=== PATIENT | female | born 1995 | race African-American/Black ===

== ENCOUNTER 2020-08-06 10:35 | Outpatient (REF) | payer OTHER, SELFPAY ==
--- NOTE | 2020-08-06 10:42 | XR_ITS ---
EXAMINATION: XR CHEST CLINICAL INFORMATION: Cough COMPARISON: Previous chest x-ray most recent June 2020 TECHNIQUE: 2 views of the chest were obtained. FINDINGS: No significant abnormality is noted involving the heart, lungs, mediastinum, bony thorax or soft tissues. XR/XR chest 2V IMPRESSION: Unremarkable examination.
== END 2020-08-06 10:36 | disposition home or self-care (01) ==
LOC: HO.HMGCX 10:35
PROVIDERS: PCP Internal Medicine; Visit Provider Internal Medicine
DX: R05 Cough (principal)
CPT/HCPCS: 71046

== ENCOUNTER → 2020-10-16 15:11 | Outpatient (BNVA) | payer OTHER, SELFPAY | PROVIDERS: PCP Internal Medicine; Visit Provider Advanced Practice Midwife | DX: Z76.89 Persons encountering health services in other specified circumstances (principal) ==

== ENCOUNTER 2021-01-24 15:41 | Outpatient (REF) | payer OTHER, SELFPAY ==
--- NOTE | ~2021-01-24 | US_ITS ---
EXAMINATION: US THYROID CLINICAL INFORMATION: Nontoxic goiter, unspecified. COMPARISON: None TECHNIQUE: Linear transducer grayscale and color Doppler examination with attention to the region of the thyroid. FINDINGS: SIZE: Measurements of the thyroid lobes and nodules are given in sagittal, anteroposterior and transverse dimensions respectively. Right Thyroid Lobe: 5.7 x 2.8 x 2.8 cm, volume 23.4 mL. Parenchyma: The gland echotexture is homogeneous. Thyroid vascularity is normal. Left Thyroid Lobe: 5.1 x 1.8 x 1.5 cm, volume 7.2 mL. Parenchyma: The gland echotexture is homogeneous. Thyroid vascularity is normal. Isthmus: 0.3 cm in maximum AP dimension. Estimated total number of nodules greater than or equal to 1 cm: 1. [employer] Architect nodules are described as follows: 1. Location: Right mid. Size: 4.4 x 2.6 x 2.7 cm, volume 16.8 mL. Nodule characteristics: Composition: Solid (2). Echogenicity: Isoechoic (1). Shape: Not taller than wide (0). Margins: Smooth (0). Echogenic Foci: None (0). ACR TI-RADS total points: 3 ACR TI-RADS category: 3 NODES: No lymphadenopathy is seen in the tissue surrounding the thyroid gland. US/US thyroid IMPRESSION: Enlarged right lobe. Large solitary right thyroid nodule. Fine-needle aspiration and continued ultrasound follow-up as described below recommended. ACR TI-RADS RECOMMENDATION REFERENCE: Ultrasound-guided fine-needle aspiration, followup ultrasound, no further follow up. * TR1 (0 point) and TR 2 (2 points): No FNA or follow up * TR3 (3 points): FNA if more than or equal to 2.5 cm in maximum dimension, followup ultrasound in 1, 3 and 5 years if 1.5 to 2.4 cm in maximum dimension. * TR4 (4-6 points): FNA if more than or equal to 1.5 cm in maximum dimension, followup ultrasound in 1, 2, 3 and 5 years if 1 to 1.4 cm in maximum dimension. * TR5 (more than or equal to 7 points): FNA if more than or equal to 1 cm in maximum dimension, followup ultrasound every year for 5 years if 0.5 to 0.9 cm in maximum dimension. * TR3, TR4 or TR5 nodules that are below the size threshold for follow up receive no follow up.
== END 2021-01-24 15:42 | disposition home or self-care (01) ==
LOC: HO.US 15:41
PROVIDERS: PCP Internal Medicine; Visit Provider Internal Medicine
DX: E04.9 Nontoxic goiter, unspecified (principal)
CPT/HCPCS: 76536

== ENCOUNTER 2021-03-19 09:27 | Outpatient (REF) | payer OTHER, SELFPAY ==
[2021-03-19 14:00] LABS: CT PCR NOT DETECTED (Not Detect.); NG PCR NOT DETECTED (Not Detect.)
== END 2021-03-19 09:28 | disposition home or self-care (01) ==
LOC: HO.LAB 09:27
PROVIDERS: PCP Internal Medicine; Visit Provider Advanced Practice Midwife
DX: Z01.419 Encounter for gynecological examination (general) (routine) without abnormal findings (principal); Z11.3 Encounter for screening for infections with a predominantly sexual mode of transmission; Z20.2 Contact with and (suspected) exposure to infections with a predominantly sexual mode of transmission
CPT/HCPCS: 87491; 87591

== ENCOUNTER → 2021-03-25 10:39 | Outpatient (BNVA) | payer OTHER, SELFPAY | PROVIDERS: PCP Internal Medicine; Visit Provider Internal Medicine Endocrinology, Diabetes & Metabolism ==

== ENCOUNTER 2021-03-25 11:30 | Outpatient (REF) | payer OTHER, SELFPAY ==
[2021-03-25 14:40] LABS: Free T4 (Free Thyroxine) 0.89 ng/dL (0.71-1.85); Thyroid Stimulating Hormone 0.49 uIU/mL (0.32-4.0)
[2021-03-26 22:26] LABS: Thyroglobulin Antibodies <1 IU/mL (< or = 1); Thyroid Peroxidase Antibodies 1 IU/mL (<9)
== END 2021-03-25 11:31 | disposition home or self-care (01) ==
LOC: HO.10HDL 11:30
PROVIDERS: Visit Provider Internal Medicine Endocrinology, Diabetes & Metabolism
DX: E04.1 Nontoxic single thyroid nodule (principal)
CPT/HCPCS: 36415; 84439; 84443; 86376; 86800

== ENCOUNTER 2021-04-10 11:01 | Outpatient (REF) | payer OTHER, SELFPAY ==
--- NOTE | 2021-04-10 11:41 | P.BOP_ITS ---
Brief Operative Note Date of Service: 04/10/21 Pre-op diagnosis: UNINODULAR GOITER Post-op diagnosis: same Procedure: This procedure was explained to the patient. Alternatives, risks and benefits were discussed. Written consent was obtained. After sterile preparation of the skin, fine-needle aspiration biopsy of right thyroid nodule size 4.4 x 2.6 x 2.7 cm was performed under direct ultrasound guidance to confirm accurate needle placement. Three passes were performed with 27 gauge needles. Sample was submitted to cytology, initial cytology reading was adequate. 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 Patient tolerated procedure well. Aftercare instructions were provided. Impression: uncomplicated fine-needle aspiration biopsy of right side thyroid nodule under direct ultrasound guidance. Surgeon: Jose Alfredo Soto MD Anesthesia: local (Lidocaine 1 %, 1 ml) Was an Furniture Lumber Production Worker used for this Procedure?: No Estimated blood loss (mL): 0 Condition: stable Disposition: same day
== END 2021-04-10 11:02 | disposition home or self-care (01) ==
LOC: HO.US 11:01
PROVIDERS: Visit Provider Internal Medicine Endocrinology, Diabetes & Metabolism
DX: E04.1 Nontoxic single thyroid nodule (principal)
CPT/HCPCS: 10005; 88172; 88173

== ENCOUNTER → 2021-04-24 09:09 | Outpatient (BNVA) | payer OTHER, SELFPAY | PROVIDERS: PCP Internal Medicine; Visit Provider Internal Medicine Endocrinology, Diabetes & Metabolism ==

== ENCOUNTER 2021-05-16 08:17 | Emergency (ER) | payer OTHER, SELFPAY ==
[2021-05-16 08:34] VITALS: BP 112/68; PULSE 84; RESP 19; TEMP 36.9; O2SAT 98; BMI 26.2
--- NOTE | 2021-05-16 09:32 | ED_ITS ---
HPI - General Adult General Chief complaint: Skin/Abscess/Foreign Body Stated complaint: sun poisioning Time Seen by Provider: 05/16/21 09:17 Source: patient Mode of arrival: ambulatory Limitations: no limitations History of Present Illness HPI narrative: Presents to ED for blisters on her lips for the past 2 days. Patient states she fell asleep on the sun and woke up and think the son cause of blisters. Patient states also having body aches. Patient states also right slight painful lump on side of neck. Related Data Home Medications Medication Instructions Recorded Confirmed fluticasone propionate 44 1 puff PO BID 08/06/20 04/24/21 mcg/actuation HFA aerosol inhaler fluticasone 100 mcg-salmeterol 50 1 inh INHALATION BID 10/16/20 04/24/21 mcg/dose blistr powdr for inhalation (Advair Diskus) clindamycin 1 %-benzoyl peroxide 5 1 appl TOPICAL QAM 03/25/21 04/24/21 % topical gel isotretinoin 40 mg capsule 40 mg PO DAILY 03/25/21 04/24/21 Previous Rx's Medication Instructions Recorded adapalene 0.3 % topical gel 1 appl TOPICAL QPM #45 g 10/14/20 (Differin) desogestrel-e.estradiol 0.15 1 tab PO DAILY 28 Days #28 tab 03/19/21 mg-0.02 mg(21)/e.estrad 0.01 mg() tablet sertraline 50 mg tablet 50 mg PO DAILY #30 tab 05/05/21 valacyclovir 1 gram tablet 2,000 mg PO Q12H #4 tab 05/15/21 (Valtrex) naproxen 500 mg tablet 500 mg PO BID PRN #20 tab 05/16/21 valacyclovir 1 gram tablet 1,000 mg PO BID 8 Days #16 tab 05/16/21 Allergies Allergy/AdvReac Type Severity Reaction Status Date / Time latex [LATEX] Allergy Mild RASH Verified 05/05/21 14:35 Review of Systems Review of Systems: Yes all other systems are reviewed and are negative Constitutional: Constitutional: Reports as per HPI and Reports no additional constitutional complaints Eyes: Eyes: Reports as per HPI and Reports no additional eye complaints ENT: Reports system reviewed and no additional complaints, except as documented and Reports as per HPI Comments: Blisters on lips Cardiovascular: Cardiovascular: Reports as per HPI and Reports no additional cardiovascular complaints Respiratory: Respiratory: Reports as per HPI and Reports no additional respiratory complaints Gastrointestinal: Gastrointestinal: Reports as per HPI and Reports no additional gastrointestinal complaints Genitourinary: Genitourinary: Reports no additional female genitourinary complaints and Reports as per HPI Musculoskeletal: Musculoskeletal: Reports no additional musculoskeletal complaints and Reports as per HPI Neurologic: Reports system reviewed and no additional complaints, except as documented and Reports as per HPI Psychiatric: Psychiatric: Reports no additional psychiatric complaints and Reports as per HPI [facility] Past Medical History Medical History Abnormal thyroid biopsy Acne Acne comedone Anxiety Asthma Cough Enlarged thyroid History of asthma Thyroid nodule Surgical History H/O wrist surgery History of bunionectomy History of knee surgery Family History Family History Father Cancer of prostate Mother CVD (cardiovascular disease) History of heart attack Brother No problems noted. Sister No problems noted. Social History Social History Advance Directives: Yes Advance Directives Information Provided: Yes Advance Directives on File: No Physical Exam Vital Signs: Vital Signs: Last Vital Signs Temp 98.5 F 05/16/21 08:34 Pulse 84 05/16/21 08:34 Resp 19 05/16/21 08:34 BP 112/68 05/16/21 08:34 Pulse Ox 98 05/16/21 08:34 Body Mass Index 26.2 Const: General: cooperative, healthy appearing, comfortable, no acute distress, well developed, alert, awake and Physically active Orientation/consciousness: patient oriented x3 HENMT: Head: Yes normal to inspection and Yes No palpable skull fracture present Head images: 1. Clustered vesicular lesions 2. Cluster of vesicular lesions 3. Cluster of vesicular lesions 4. Cluster of vesicular lesions Ears: hearing grossly normal bilaterally, external ears normal, TM's normal bilaterally, TM normal on the right, TM normal on the left, EAC's normal, mastoids normal and no periauricular adenopathy General nose exam: Normal external nose present and Normal nares present Eyes: General: appearance normal, both eyes and all related structures Neck: Neck: Yes normal visual inspection, Yes full ROM, Yes no lymphadenopathy, Yes no meningeal signs, Yes trachea midline, Yes supple, Yes lymphadenopathy (small right submandibular) and No tender Chest: Chest palpation & inspection: normal inspection of the chest and normal palpation of entire chest wall Resp: Effort & Inspection: normal respiratory effort and able to speak in complete sentences Auscultation: clear to auscultation bilaterally Cardio: Jugular venous distension: no JVD Heart sounds: S1 normal heart sound present and S2 normal heart sound present GI: Inspection: Yes normal to inspection and No abdominal wall ecchymosis Palpation (GI): Soft to palpation, not firm, nontender, no guarding and not rigid : General: No CVA tenderness and Yes no CVA tenderness Back/Spine/Pelvis: Back: no CVA tenderness, No CVA tenderness and No back tenderness Skin: General skin exam: no rashes or lesions noted and elasticity normal Neuro: General: patient oriented x3, gait normal, no meningeal signs and CN's II-XI intact bilaterally Cranial nerves: Yes CN's II-XII intact bilaterally Extrem: General: Yes normal to inspection and Yes full ROM Psych: Appearance: grossly normal, well kempt and not disheveled Course Course Course Narrative: History physical exam indicate HSV or labial. Reevaluation(s) Reevaluation #1: HSV culture swab ordered. Patient states her PCP only give her 4 pills of a valcyclovir to treat HSV. According to UpToDate 1 mg twice daily up to 7-10 days is a standard. Time: 09:37 Medical Decision Making [facility] Narrative Medical decision making narrative: HSV oral labial Discharge Plan Discharge Clinical Impression: HSV infection Patient Disposition: Home, Self-Care Instructions: Oral Herpes Simplex Virus Infections (ED) Additional Instructions: History physical exam indicate oral labial HSV infection which could be treated with valacyclovir. I will prescribe you more valacyclovir pills. Return to the ED if she notice lesions on nose, blurry vision, eye pain, stinging burning sensation in the ears, lesion in the ears, or any other concerning symptoms. Please follow up with PCP Prescriptions: New valacyclovir 1 gram tablet 1,000 mg PO BID 8 Days Qty: 16 RF: 0 naproxen 500 mg tablet 500 mg PO BID PRN (Reason: pain) Qty: 20 RF: 0 No Action valacyclovir [Valtrex] 1 gram tablet 2,000 mg PO Q12H Qty: 4 RF: 5 Flovent HFA 44 mcg/actuation HFA aerosol inhaler 1 puff PO BID RF: 0 adapalene [Differin] 0.3 % gel 1 appl topical QPM Qty: 45 RF: 0 sertraline 50 mg tablet 50 mg PO DAILY Qty: 30 RF: 2 fluticasone propion-salmeterol [Advair Diskus] 100-50 mcg/dose blister with device 1 inh inhalation BID RF: 0 desog-e.estradiol/e.estradiol 0.15-0.02 mgx21 /0.01 mg x 5 tablet 1 tab PO DAILY 28 Days Qty: 28 RF: 11 isotretinoin 40 mg capsule 40 mg PO DAILY RF: 0 clindamycin-benzoyl peroxide 1-5 % gel 1 appl topical QAM RF: 0 Stand Alone Forms: Work/School Release Interventions: ED Discharge Assessment Last Done: 05/16/21 10:00 Discharge Date/Time: 05/16/21 10:00 Print Language: Urdu
== END 2021-05-16 10:00 | disposition home or self-care (01) ==
PROVIDERS: Physician Assistant; Emergency Provider Emergency Medicine Emergency Medical Services; PCP Internal Medicine
DX: B00.1 Herpesviral vesicular dermatitis (principal)
CPT/HCPCS: 87255; 99283

== ENCOUNTER → 2021-07-31 11:12 | Outpatient (BNVA) | payer OTHER, SELFPAY | PROVIDERS: PCP Internal Medicine; Visit Provider Internal Medicine ==

== ENCOUNTER 2021-10-08 16:34 | Outpatient (REF) | payer OTHER, SELFPAY ==
[2021-10-09 03:21] LABS: CT PCR NOT DETECTED (Not Detect.); NG PCR NOT DETECTED (Not Detect.)
[2021-10-09 09:44] LABS: BV Int Neg Control Negative (Negative); BV Int Pos Control Positive (Positive)
== END 2021-10-08 16:35 | disposition home or self-care (01) ==
LOC: HO.LNP 16:34
PROVIDERS: Visit Provider Physician Assistant Medical
DX: R30.0 Dysuria (principal); N76.0 Acute vaginitis
CPT/HCPCS: 87086; 87252; 87255; 87480; 87491; 87510; 87591; 87660

== ENCOUNTER 2021-10-28 15:33 | Outpatient (REF) | payer OTHER, SELFPAY ==
[2021-10-28 16:45] LABS: Free T4 (Free Thyroxine) 0.79 ng/dL (0.71-1.85); Thyroid Stimulating Hormone 0.86 uIU/mL (0.32-4.0)
[2021-10-29 14:46] LABS: Calcium (PTHI) 9.1 mg/dL (8.6-10.2); PTHI 57 pg/mL (14-64)
== END 2021-10-28 15:34 | disposition home or self-care (01) ==
LOC: HO.LAB 15:33
PROVIDERS: PCP Internal Medicine; Visit Provider Internal Medicine
DX: E04.1 Nontoxic single thyroid nodule (principal)
CPT/HCPCS: 36415; 83970; 84439; 84443

== ENCOUNTER → 2021-10-30 11:38 | Outpatient (BNVA) | payer OTHER, SELFPAY | PROVIDERS: PCP Internal Medicine; Visit Provider Internal Medicine ==

== ENCOUNTER 2021-11-26 11:05 | Outpatient (REF) | payer OTHER, SELFPAY ==
--- NOTE | ~2021-11-26 | XR_ITS ---
EXAMINATION: XR CHEST CLINICAL INFORMATION: Cough. COMPARISON: None TECHNIQUE: 2 views of the chest were obtained. FINDINGS: No significant abnormality is noted involving the heart, lungs, mediastinum, bony thorax or soft tissues. XR/XR chest 2V IMPRESSION: Unremarkable chest examination.
== END 2021-11-26 11:06 | disposition home or self-care (01) ==
LOC: HO.HMGCX 11:05
PROVIDERS: PCP Internal Medicine; Visit Provider Physician Assistant
DX: R05.9 Cough, unspecified (principal)
CPT/HCPCS: 71046

== ENCOUNTER 2022-04-07 15:31 | Outpatient (REF) | payer OTHER, SELFPAY ==
[2022-04-08 09:35] LABS: CT PCR NOT DETECTED (Not Detect.); NG PCR NOT DETECTED (Not Detect.)
[2022-04-08 10:05] LABS: BV Int Neg Control Negative (Negative); BV Int Pos Control Positive (Positive)
== END 2022-04-07 15:32 | disposition home or self-care (01) ==
LOC: HO.LAB 15:31
PROVIDERS: Visit Provider Advanced Practice Midwife
DX: N89.8 Other specified noninflammatory disorders of vagina (principal); Z20.2 Contact with and (suspected) exposure to infections with a predominantly sexual mode of transmission
CPT/HCPCS: 87480; 87491; 87510; 87591; 87660

== ENCOUNTER 2022-05-05 16:35 | Outpatient (REF) | payer OTHER, SELFPAY ==
[2022-05-05 18:06] LABS: Free T4 (Free Thyroxine) 1.06 ng/dL (0.71-1.85); Thyroid Stimulating Hormone 1.68 uIU/mL (0.32-4.0); Vitamin D 25-OH Total 28.8 ng/mL (>30)
[2022-05-06 14:23] LABS: Calcium (PTHI) 9.6 mg/dL (8.6-10.2); PTHI 38 pg/mL (16-77)
== END 2022-05-05 16:36 | disposition home or self-care (01) ==
LOC: HO.LAB 16:35
PROVIDERS: PCP Internal Medicine; Visit Provider Internal Medicine
DX: E04.1 Nontoxic single thyroid nodule (principal); E55.9 Vitamin D deficiency, unspecified
CPT/HCPCS: 36415; 82306; 83970; 84439; 84443

== ENCOUNTER 2023-01-04 21:33 | Inpatient (IN) | payer OTHER, SELFPAY ==
--- NOTE | 2023-01-04 | ECG_ITS ---
Test Reason : CHEST PAIN Blood Pressure : / mmHG Vent. Rate : 061 BPM Atrial Rate : 061 BPM P-R Int : 150 ms QRS Dur : 080 ms QT Int : 408 ms P-R-T Axes : 072 059 042 degrees QTc Int : 410 ms Normal sinus rhythm Possible Left atrial enlargement Borderline ECG No previous ECGs available Referred By: Generic ED Physician Electronically Signed By:ISSA TORRES
--- NOTE | ~2023-01-04 | XR_ITS ---
EXAMINATION: XR CHEST CLINICAL INFORMATION: Asthma COMPARISON: 11/26/2021 TECHNIQUE: Frontal view of the chest was obtained. FINDINGS: No significant abnormality is noted involving the heart, lungs, mediastinum, bony thorax or soft tissues. XR/XR chest 1V IMPRESSION: Unremarkable examination.
--- NOTE | ~2023-01-04 | CT_ITS ---
EXAMINATION: CT ANGIOGRAM OF THE CHEST WITH AND WITHOUT CONTRAST (CT PULMONARY ANGIOGRAM FOR PE) CLINICAL INFORMATION: Reason for Exam Acute hypoxic - D-Dimer - <150 COMPARISON: Radiograph 01/04/2023 TECHNIQUE: Prior to contrast administration, noncontrast localization images were obtained. Subsequently, multidetector volumetric imaging was performed from the thoracic inlet to below the diaphragms following the administration of 65 mL Omnipaque 350 intravenous contrast. No contrast reaction reported Sagittal, coronal, and MIP oblique sagittal reformatted images were obtained on the CT workstation, uploaded to PACS, and reviewed. This CT examination was performed using dose optimization techniques as appropriate, variously including the following: *Automated exposure control *Adjustment of mA and/or kV according to patient size (this includes techniques or standardized protocols for targeted exams where dose is matched to indication/reason for exam; i.e. extremities or head) *Use of iterative reconstruction technique Total exam dose-length product 191 mGy-cm FINDINGS: QUALITY OF STUDY/CONTRAST BOLUS: Satisfactory. PULMONARY ARTERIES: No central or segmental pulmonary emboli. Mildly dilated main pulmonary artery measures 3.5 cm transverse. THORACIC AORTA: No aneurysm or dissection. LUNG: No focal consolidation, nodules or masses. The central airways are patent. Fissural lymph node along the right minor fissure. PLEURA: No pleural effusion or pneumothorax. MEDIASTINUM: Normal heart size. No pericardial effusion. No hilar or mediastinal lymphadenopathy. No evidence of septal bowing or right heart strain. CORONARY ARTERY CALCIFICATION: None visualized on this study. CHEST WALL/AXILLA: No axillary or internal mammary lymphadenopathy. OSSEOUS STRUCTURES: No acute or suspicious osseous abnormality. UPPER ABDOMEN: Unremarkable. No reflux of contrast into the hepatic veins to suggest elevated right heart pressures. CT/CT angio chest PE protocol IMPRESSION: 1. No pulmonary embolism or other acute intrathoracic abnormality. 2. Mildly dilated main pulmonary artery can be seen with pulmonary artery hypertension. VTE: negative
[2023-01-04 21:40] VITALS: BP 131/101; PULSE 77; RESP 18; TEMP 36.4; O2SAT 98; BMI 23.5
[2023-01-04 21:44] VITALS: BP 146/93
[2023-01-04 22:13] LABS: MANUAL DIFF FLAG NO
[2023-01-04 22:15] LABS: Basophils Absolute Auto 0.1 X10*3/uL (0.0-0.2); Eosinophils Absolute Auto 0.3 X10*3/uL (0.0-0.4); Hematocrit 40.7 % (37.0-47.0); Hemoglobin 13.2 g/dl (12.0-16.0); Imm Gran Abs Auto 0.01 X10*3/uL (0.00-0.03); Imm Gran Pct Auto 0.1 % (0.0-0.4); Lymphocytes Percent Auto 44.4 % (20-40); Mean Corpuscular HGB Conc 32.4 g/dl (31.0-35.0); Mean Corpuscular Hemoglobin 27.8 pg (27.0-33.0); Mean Corpuscular Volume 85.9 fL (80.0-98.0); Mean Platelet Volume 10.3 fL (9.4-12.3); Monocytes Absolute Auto 0.6 X10*3/uL (0.1-1.2); Monocytes Percent Auto 8.6 % (2-11); Neutrophils Absolute Auto 2.8 x10*3/uL (2.0-8.3); Neutrophils Percent Auto 41.9 % (45-73); Platelet Count 240 X10*3/uL (160-400); Red Blood Count 4.74 X10*6/uL (4.20-5.50); Red Cell Distribution Width 13.1 % (11.0-16.0); White Blood Count 6.7 X10*3/uL (4.8-10.8)
[2023-01-04 22:34] LABS: Alanine Aminotransferase 9 U/L (0-31); Albumin Level 4.4 g/dL (3.5-5.0); Alkaline Phosphatase 32 U/L (39-117); Anion Gap 11 (12-20); Aspartate Amino Transferase 14 U/L (5-31); Bilirubin Total 0.7 mg/dL (0.0-1.0); Blood Urea Nitrogen 13 mg/dL (9-16); Calcium 9.2 mg/dL (8.4-10.2); Carbon Dioxide 25 mmol/L (22-29); Chloride 106 mmol/L (96-108); Creatinine Clr Calc Pharmacy 112.2; Estimated Glomerular Filt Rate > 60; Glucose Random 86 mg/dL (60-115); Potassium 3.4 mmol/L (3.3-5.1); Sodium 139 mmol/L (135-145)
[2023-01-04 22:35] LABS: IDNOW Serial# BCCEAD1C; Influenza A Negative (Negative); Influenza B2 Negative (Negative)
[2023-01-04 22:36] LABS: COVID-19 Test Negative (Negative); IDNOW Serial# 08D9AD1C
[2023-01-04 23:20] VITALS: BP 129/90; PULSE 69; RESP 21; TEMP 36.7; O2SAT 96
--- NOTE | 2023-01-04 23:52 | ED.SOB ---
HPI - SOB/Dyspnea General Chief Complaint: Dyspnea Stated Complaint: chest pain sob Time Seen by Provider: 01/04/23 23:27 Source: patient Mode of arrival: ambulatory Limitations: no limitations History of Present Illness HPI Narrative: Patient's history of mild MRBUSTER post COVID infection with asthma comes in for his shortness of breath and chest tightness feeling for last 3 days feels heart is beating off and on fast and hard time getting her breath feels very short of breath and mild exertion. No leg edema patient been using inhalers without much relief reports nausea no vomiting no fever no chills Related Data Previous Rx's Medication Instructions Recorded desogestrel-e.estradiol 0.15 1 tab PO DAILY 28 days #28 tabs 04/07/22 mg-0.02 mg(21)/e.estrad 0.01 mg(5) tablet diclofenac potassium 50 mg tablet 50 mg PO BID #60 tabs 07/16/22 Allergies Allergy/AdvReac Type Severity Reaction Status Date / Time latex [LATEX] Allergy Mild RASH Verified 01/04/23 21:44 Review of Systems Review of Systems: Yes all other systems are reviewed and are negative PMFSH Past Medical History Medical History Abnormal thyroid biopsy Acne Acne comedone Anxiety Asthma Cough Enlarged thyroid History of asthma Thyroid nodule TMJ (dislocation of temporomandibular joint) TMJ (temporomandibular joint syndrome) Vitamin D deficiency Surgical History H/O wrist surgery History of bunionectomy History of knee surgery History of lobectomy of thyroid Family History Family History Father Cancer of prostate Heart murmur Mother CVD (cardiovascular disease) History of heart attack Brother No problems noted. Sister No problems noted. 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 Oriented X3. No acute distress. Eyes: PERRLA, No Nystagmus ENT: Pharynx normal. Oral Mucosa moist Neck: Normal inspection. Neck supple. CVS: Normal heart rate and rhythm. Pulses normal. Soft systolic murmur at parasternal area Respiratory: No respiratory distress. Equal air entry bilateral, no wheezing/rales/rhonchi Abdomen: Soft and nontender. Bowel sounds are present, Skin: Skin warm and dry. Normal skin color. Normal skin turgor. Extremities: No lower extremity edema. No calf tenderness Neuro: Oriented X 3. No motor deficit. Medications Administered Generic Name Dose Route Start Last Admin Trade Name Freq PRN Reason Stop Dose Admin Enoxaparin Sodium 40 mg 01/05/23 05:00 01/05/23 05:33 Enoxaparin Sodium 40 Mg/0.4 Ml Syringe SUBCUT 40 mg Q24H VICENTE Administration Discontinued Medications Generic Name Dose Route Start Last Admin Trade Name Freq PRN Reason Stop Dose Admin Iohexol 65 ml 01/05/23 02:55 01/05/23 02:56 Iohexol 350 Mg/Ml 100 Ml Infus..Btl IV 01/05/23 02:56 65 ml ONCE ONE Administration Medical Decision Making Medical Decision Making [facility] Narrative: Patient with mild TR/MR comes here for increased shortness of breath on exertion patient does have asthma and anxiety in ER patient is saturating 98% on room air patient is not anemic BNP negative for CHF will check D-dimer to rule out PE When patient ambulated her pulse ox dropped to 80s will do CTA chest also check for venous gases plan to admit for evaluation by pipefitter Differential Diagnosis Acute PE/right to left shunt/pneumonia/anemia/pericardial effusion Consult Healthcare Provider Management of the patient was discussed with: Hospitalist Lab Data MDM Lab Attestation statement: I reviewed the patient's lab results. 01/04/23 22:06 01/04/23 22:06 Labs: Lab Results 01/04/23 01/04/23 01/04/23 Range/Units 22:06 22:06 22:06 WBC 6.7 (4.8-10.8) X10*3/uL RBC 4.74 (4.20-5.50) X10*6/uL Hgb 13.2 (12.0-16.0) g/dl Hct 40.7 (37.0-47.0) % MCV 85.9 (80.0-98.0) fL MCH 27.8 (27.0-33.0) pg MCHC 32.4 (31.0-35.0) g/dl RDW 13.1 (11.0-16.0) % Plt Count 240 (160-400) X10*3/uL MPV 10.3 (9.4-12.3) fL Immature Gran % (Auto) 0.1 (0.0-0.4) % Neut % (Auto) 41.9 L (45-73) % Lymph % (Auto) 44.4 H (20-40) % [place] % (Auto) 8.6 (2-11) % Eos % (Auto) 4.0 (0-4) % Baso % (Auto) 1.0 (0-2) % Lymph # (Auto) 3.0 (1.2-4.9) X10*3/uL [place] # (Auto) 0.6 (0.1-1.2) X10*3/uL Eos # (Auto) 0.3 (0.0-0.4) X10*3/uL Baso # (Auto) 0.1 (0.0-0.2) X10*3/uL Abs Immat Gran (auto) 0.01 (0.00-0.03) X10*3/uL Absolute Neuts (auto) 2.8 (2.0-8.3) x10*3/uL Absolute Nucleated RBC 0.000 (0.0-0.012) X10*3/uL Nucleated RBC % (auto) 0.0 (0.0-0.2) /100WBC PT (10.0-13.1) SEC INR (0.9-1.1) APTT (26.0-36.4) SEC D-Dimer High Sensitivty NG/ML VBG pH (7.32-7.43) VBG pCO2 mmHg VBG pO2 mmHg VBG HCO3 (22-26) mmol/L VBG O2 Saturation % VBG Base Excess mmol/L Sodium 139 (135-145) mmol/L Potassium 3.4 (3.3-5.1) mmol/L Chloride 106 (96-108) mmol/L Carbon Dioxide 25 (22-29) mmol/L Anion Gap 11 L (12-20) BUN 13 (9-16) mg/dL Creatinine 0.88 (0.5-1.4) mg/dL Estim Creat Clear Calc 112.2 Estimated GFR > 60 Random Glucose 86 (60-115) mg/dL Calcium 9.2 (8.4-10.2) mg/dL Total Bilirubin 0.7 (0.0-1.0) mg/dL AST 14 (5-31) U/L ALT 9 (0-31) U/L Alkaline Phosphatase 32 L (39-117) U/L B-Natriuretic Peptide (<100) pg/mL Total Protein 7.0 (6.5-8.0) g/dL Albumin 4.4 (3.5-5.0) g/dL Beta HCG, Quant < 2 mIU/mL COVID-19 (AIYANA) (Negative) COVID-19 Clin Com Influenza Type A (KEITH) Negative (Negative) Influenza Type B (KEITH) Negative (Negative) Influenza A & B Note See Note 01/04/23 01/04/23 01/05/23 Range/Units 22:06 22:06 00:13 WBC (4.8-10.8) X10*3/uL RBC (4.20-5.50) X10*6/uL Hgb (12.0-16.0) g/dl Hct (37.0-47.0) % MCV (80.0-98.0) fL MCH (27.0-33.0) pg MCHC (31.0-35.0) g/dl RDW (11.0-16.0) % Plt Count (160-400) X10*3/uL MPV (9.4-12.3) fL Immature Gran % (Auto) (0.0-0.4) % Neut % (Auto) (45-73) % Lymph % (Auto) (20-40) % [place] % (Auto) (2-11) % Eos % (Auto) (0-4) % Baso % (Auto) (0-2) % Lymph # (Auto) (1.2-4.9) X10*3/uL [place] # (Auto) (0.1-1.2) X10*3/uL Eos # (Auto) (0.0-0.4) X10*3/uL Baso # (Auto) (0.0-0.2) X10*3/uL Abs Immat Gran (auto) (0.00-0.03) X10*3/uL Absolute Neuts (auto) (2.0-8.3) x10*3/uL Absolute Nucleated RBC (0.0-0.012) X10*3/uL Nucleated RBC % (auto) (0.0-0.2) /100WBC PT 13.9 H (10.0-13.1) SEC INR 1.2 H (0.9-1.1) APTT 39.7 H (26.0-36.4) SEC D-Dimer High Sensitivty < 150 NG/ML VBG pH (7.32-7.43) VBG pCO2 mmHg VBG pO2 mmHg VBG HCO3 (22-26) mmol/L VBG O2 Saturation % VBG Base Excess mmol/L Sodium (135-145) mmol/L Potassium (3.3-5.1) mmol/L Chloride (96-108) mmol/L Carbon Dioxide (22-29) mmol/L Anion Gap (12-20) BUN (9-16) mg/dL Creatinine (0.5-1.4) mg/dL Estim Creat Clear Calc Estimated GFR Random Glucose (60-115) mg/dL Calcium (8.4-10.2) mg/dL Total Bilirubin (0.0-1.0) mg/dL AST (5-31) U/L ALT (0-31) U/L Alkaline Phosphatase (39-117) U/L B-Natriuretic Peptide < 10 (<100) pg/mL Total Protein (6.5-8.0) g/dL Albumin (3.5-5.0) g/dL Beta HCG, Quant mIU/mL COVID-19 (AIYANA) Negative (Negative) COVID-19 Clin Com See Note Influenza Type A (KEITH) (Negative) Influenza Type B (KEITH) (Negative) Influenza A & B Note 01/05/23 Range/Units 00:53 WBC (4.8-10.8) X10*3/uL RBC (4.20-5.50) X10*6/uL Hgb (12.0-16.0) g/dl Hct (37.0-47.0) % MCV (80.0-98.0) fL MCH (27.0-33.0) pg MCHC (31.0-35.0) g/dl RDW (11.0-16.0) % Plt Count (160-400) X10*3/uL MPV (9.4-12.3) fL Immature Gran % (Auto) (0.0-0.4) % Neut % (Auto) (45-73) % Lymph % (Auto) (20-40) % [place] % (Auto) (2-11) % Eos % (Auto) (0-4) % Baso % (Auto) (0-2) % Lymph # (Auto) (1.2-4.9) X10*3/uL [place] # (Auto) (0.1-1.2) X10*3/uL Eos # (Auto) (0.0-0.4) X10*3/uL Baso # (Auto) (0.0-0.2) X10*3/uL Abs Immat Gran (auto) (0.00-0.03) X10*3/uL Absolute Neuts (auto) (2.0-8.3) x10*3/uL Absolute Nucleated RBC (0.0-0.012) X10*3/uL Nucleated RBC % (auto) (0.0-0.2) /100WBC PT (10.0-13.1) SEC INR (0.9-1.1) APTT (26.0-36.4) SEC D-Dimer High Sensitivty NG/ML VBG pH 7.39 (7.32-7.43) VBG pCO2 41 mmHg VBG pO2 36 mmHg VBG HCO3 25 (22-26) mmol/L VBG O2 Saturation 47.0 % VBG Base Excess 0.4 mmol/L Sodium (135-145) mmol/L Potassium (3.3-5.1) mmol/L Chloride (96-108) mmol/L Carbon Dioxide (22-29) mmol/L Anion Gap (12-20) BUN (9-16) mg/dL Creatinine (0.5-1.4) mg/dL Estim Creat Clear Calc Estimated GFR Random Glucose (60-115) mg/dL Calcium (8.4-10.2) mg/dL Total Bilirubin (0.0-1.0) mg/dL AST (5-31) U/L ALT (0-31) U/L Alkaline Phosphatase (39-117) U/L B-Natriuretic Peptide (<100) pg/mL Total Protein (6.5-8.0) g/dL Albumin (3.5-5.0) g/dL Beta HCG, Quant mIU/mL COVID-19 (AIYANA) (Negative) COVID-19 Clin Com Influenza Type A (KEITH) (Negative) Influenza Type B (KEITH) (Negative) Influenza A & B Note Discharge Plan Discharge Clinical Impression: Acute respiratory failure with hypoxia, Dilated cardiomyopathy Patient Disposition: Admitted As Inpatient
--- NOTE | 2023-01-05 00:12 | PC.NURSE ---
pt c/o chest pain and sob that increases when movement occurs
[2023-01-05 00:19] LABS: B Type Natriuretic Peptide < 10 pg/mL (<100)
[2023-01-05 00:30] LABS: D Dimer High Sensitivity < 150 NG/ML
[2023-01-05 00:39] VITALS: O2SAT 80
[2023-01-05 00:55] LABS: INTERNATIONAL NORM RATIO 1.2 (0.9-1.1); Prothrombin Time 13.9 SEC (10.0-13.1)
[2023-01-05 00:58] LABS: Partial Thromboplastin Time 39.7 SEC (26.0-36.4)
[2023-01-05 01:06] LABS: Venous Blood Gas Refer to POC result
--- NOTE | 2023-01-05 01:32 | PC.NURSE ---
med rec completed
[2023-01-05 02:36] LABS: HCG Quantitative < 2 mIU/mL
[2023-01-05] MEDS: iohexoL 350 MG/ML 100 ML INFUS..BTL 65 ML IV (02:56)
--- NOTE | 2023-01-05 04:12 | PM.IMHP ---
History of Present Illness Date of Service: 01/05/23 Chief Complaint: Dyspnea This is a 27-year-old female with pertinent history of temporomandibular joint pain on NSAIDs, mild TR, MR presents to the emergency department evaluation dyspnea and palpitations. Patient states over the last 3 days, she has experienced palpitations and dyspnea, worse with exertion. Patient states palpitation and dyspnea are better with rest. Patient also feels short of breath when she lays flat. She feels better when she sits up in bed. No leg swelling. No history of similar complaints in the past. Patient denies fever, chills, cough, abdominal pain, changes in urinary or bowel habits. In the emergency department, patient was found to be satting in the 80s upon ambulation Review of Systems Constitutional: Constitutional: Reports no additional constitutional complaints Cardiovascular: Cardiovascular: Reports rapid heart rate, Reports dyspnea on exertion and Reports orthopnea Respiratory: Respiratory: Reports dyspnea on exertion Gastrointestinal: Gastrointestinal: Reports no additional gastrointestinal complaints Genitourinary: Genitourinary: Reports no additional female genitourinary complaints [facility]LY [facility] Medical History Abnormal thyroid biopsy Acne Acne comedone Anxiety Asthma Cough Enlarged thyroid History of asthma Thyroid nodule TMJ (dislocation of temporomandibular joint) TMJ (temporomandibular joint syndrome) Vitamin D deficiency Family History Father Cancer of prostate Heart murmur Mother CVD (cardiovascular disease) History of heart attack Brother No problems noted. Sister No problems noted. 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 [employer] Current occupational exposures/hazards: No Cognitive needs: No Hearing needs: No Vision needs: No Meds Allergies Allergy/AdvReac Type Severity Reaction Status Date / Time latex [LATEX] Allergy Mild RASH Verified 01/04/23 21:44 Physical Exam Vital Signs and Narrative: Vital Signs: Last Vital Signs Temp 98.0 F 01/04/23 23:20 Pulse 69 01/04/23 23:20 Resp 21 H 01/04/23 23:20 BP 129/90 H 01/04/23 23:20 Pulse Ox 80 L 01/05/23 00:39 O2 Del Method Room Air 01/04/23 23:20 BMI result Body Mass Index 23.5 Young female lying in bed in no distress Neck supple, no JVD Regular rate and rhythm, S1-S2 heard Regular breath sounds bilaterally, no wheezing or crackles appreciated Abdomen soft nontender, no guarding, no rigidity Patient is awake, alert and oriented to self, place, time and person ; no focal motor deficit Psych: Normal mood No pedal edema Results Labs 01/04/23 22:06 01/04/23 22:06 Labs: Laboratory Results - last 24 hr 01/04/23 01/04/23 01/04/23 22:06 22:06 22:06 MCV 85.9 MCH 27.8 MCHC 32.4 RDW 13.1 Plt Count 240 MPV 10.3 Immature Gran % (Auto) 0.1 Neut % (Auto) 41.9 L Lymph % (Auto) 44.4 H [place] % (Auto) 8.6 Eos % (Auto) 4.0 Baso % (Auto) 1.0 Lymph # (Auto) 3.0 [place] # (Auto) 0.6 Eos # (Auto) 0.3 Baso # (Auto) 0.1 Abs Immat Gran (auto) 0.01 Absolute Neuts (auto) 2.8 Absolute Nucleated RBC 0.000 Nucleated RBC % (auto) 0.0 PT INR APTT D-Dimer High Sensitivty Anion Gap 11 L Estim Creat Clear Calc 112.2 Estimated GFR > 60 Random Glucose 86 Calcium 9.2 Total Bilirubin 0.7 AST 14 ALT 9 Alkaline Phosphatase 32 L B-Natriuretic Peptide Total Protein 7.0 Albumin 4.4 Beta HCG, Quant < 2 COVID-19 (AIYANA) COVID-19 Clin Com Influenza Type A (KEITH) Negative Influenza Type B (KEITH) Negative Influenza A & B Note See Note 01/04/23 01/04/23 01/05/23 22:06 22:06 00:13 MCV MCH MCHC RDW Plt Count MPV Immature Gran % (Auto) Neut % (Auto) Lymph % (Auto) [place] % (Auto) Eos % (Auto) Baso % (Auto) Lymph # (Auto) [place] # (Auto) Eos # (Auto) Baso # (Auto) Abs Immat Gran (auto) Absolute Neuts (auto) Absolute Nucleated RBC Nucleated RBC % (auto) PT 13.9 H INR 1.2 H APTT 39.7 H D-Dimer High Sensitivty < 150 Anion Gap Estim Creat Clear Calc Estimated GFR Random Glucose Calcium Total Bilirubin AST ALT Alkaline Phosphatase B-Natriuretic Peptide < 10 Total Protein Albumin Beta HCG, Quant COVID-19 (AIYANA) Negative COVID-19 Clin Com See Note Influenza Type A (KEITH) Influenza Type B (KEITH) Influenza A & B Note Imaging Radiologist's Impressions: Impressions Chest X-Ray 01/04/23 21:56 IMPRESSION: Unremarkable examination. Chest CTA 01/05/23 02:57 IMPRESSION: 1. No pulmonary embolism or other acute intrathoracic abnormality. 2. Mildly dilated main pulmonary artery can be seen with pulmonary artery hypertension. VTE: negative Assessment and Plan (1) Hypoxia: Status: Acute Plan This is a 27-year-old female with pertinent history of temporomandibular joint pain on NSAIDs, mild TR, MR presents to the emergency department evaluation dyspnea and palpitations. #. Ambulatory hypoxemia with palpitations: Unclear etiology. Will admit with monitoring and evaluation advisor. Obtaining echocardiogram and consulting Cardiology. Troponin pending. Maintain oxygen saturation greater than 90% #. TMJ disorder on NSAIDs DVT prophylaxis: Lovenox 40 mg daily Full code Regular diet Admit as inpatient and will require two night minimum hospital stay for monitoring of supplemental oxygen with ambulation and further workup Time Spent With Patient Time: Total time managing care of this patient today ____ minutes. Quality Stroke Does the patient have a stroke diagnosis?: No VTE Prior VTE?: No VTE Risk Level:: Medical - moderate - high VTE Device Contraindication: Treatment Not Indicated VTE Drug Contraindication: N/A - Med Ordered
[2023-01-05 04:19] LABS: VBG Base Excess 0.4 mmol/L; VBG HCO3 25 mmol/L (22-26); VBG pCO2 41 mmHg; VBG pH 7.39 (7.32-7.43); VBG pO2 36 mmHg
[2023-01-05 05:07] VITALS: BP 110/64; PULSE 64; RESP 15; TEMP 36.4; O2SAT 96
--- NOTE | 2023-01-05 05:11 | MHC.EDTECH ---
pt destats when she walks down to 80%
--- NOTE | 2023-01-05 05:15 | PC.NURSE ---
spoke to staff member in cafeteria in r/t accommodating pt jewish dietary needs; pt is fasting and cannot eat any later than 0630 and will not be able to eat again until later in the evening, staff member to bring message to the attention of the neurology manager
[2023-01-05] MEDS: Enoxaparin Sodium 40 MG/0.4 ML SYRINGE SUBCUT (05:33)
[2023-01-05 05:35] LABS: MANUAL DIFF FLAG NO
[2023-01-05 05:38] LABS: Basophils Absolute Auto 0.1 X10*3/uL (0.0-0.2); Basophils Percent Auto 0.8 % (0-2); Eosinophils Absolute Auto 0.4 X10*3/uL (0.0-0.4); Eosinophils Percent Auto 5.6 % (0-4); Hematocrit 39.1 % (37.0-47.0); Hemoglobin 12.7 g/dl (12.0-16.0); Imm Gran Abs Auto 0.01 X10*3/uL (0.00-0.03); Imm Gran Pct Auto 0.1 % (0.0-0.4); Lymphocytes Absolute Auto 3.5 X10*3/uL (1.2-4.9); Lymphocytes Percent Auto 47.5 % (20-40); Mean Corpuscular HGB Conc 32.5 g/dl (31.0-35.0); Mean Corpuscular Hemoglobin 27.6 pg (27.0-33.0); Mean Platelet Volume 10.1 fL (9.4-12.3); Monocytes Absolute Auto 0.6 X10*3/uL (0.1-1.2); Monocytes Percent Auto 7.9 % (2-11); Neutrophils Absolute Auto 2.8 x10*3/uL (2.0-8.3); Neutrophils Percent Auto 38.1 % (45-73); Platelet Count 227 X10*3/uL (160-400); White Blood Count 7.5 X10*3/uL (4.8-10.8)
[2023-01-05 05:51] LABS: Anion Gap 12 (12-20); Blood Urea Nitrogen 11 mg/dL (9-16); Calcium 8.7 mg/dL (8.4-10.2); Carbon Dioxide 25 mmol/L (22-29); Chloride 105 mmol/L (96-108); Estimated Glomerular Filt Rate > 60; Glucose Random 92 mg/dL (60-115); Potassium 3.6 mmol/L (3.3-5.1); Sodium 138 mmol/L (135-145)
[2023-01-05 06:02] LABS: Troponin-I High Sensitivity < 3.5 ng/L (<3.5-17.0)
--- NOTE | 2023-01-05 07:00 | CA_ITS ---
Transthoracic Echocardiogram Patient (Last, First, Middle): Meghan Devi M Gender: Female Date of : 1995 Age: 27 Procedure Date: 01/05/2023 Procedure Type: Transthoracic Echocardiogram Location: ER Height: 185.42 cm Weight: 80.74 kg BSA: 2.05 m2 Heart Rate: bpm BP: 131 / 78 mmHg [employer] Bi Consultant: TO Referring MD: Eugenia Wilde MD Symptoms: Dyspnea Study Quality: Fair ECG Rhythm: Sinus Conclusions: - The left ventricular systolic function is normal. The calculated ejection fraction is 63% by biplane method. - No obvious valvular pathology seen on this study. Findings Left Ventricle Normal left ventricular cavity size. There is normal left ventricular wall thickness. The left ventricular systolic function is normal. The calculated ejection fraction is 63% by biplane method. There is no evidence of regional wall motion abnormalities. Diastolic function is normal for age. LV peak GLS -20.5%. Right Ventricle Normal right ventricular cavity size and systolic function. Atria Both atria are normal in size. Aortic Valve There is a normal trileaflet aortic valve. There is no aortic valve stenosis. There is no aortic valve regurgitation. Mitral Valve The mitral valve appears normal. There is trace mitral valve regurgitation. There is no mitral valve stenosis. Pulmonic Valve The pulmonic valve is likely normal. Tricuspid Valve There is mild tricuspid valve regurgitation. There is no evidence of pulmonary hypertension. Great Vessels The asc aorta is normal in size. Venous The inferior vena cava is mildly dilated and collapses greater than 50% with inspiration. Pericardium/Pleural There is no evidence of pericardial effusion. Prior Study Comparison No prior study available for comparison. Recommendations, Care & Conclusions No obvious valvular pathology seen on this study. Measurements 2D Linear Measurements IVSd: 0.75 0.6-0.9/0.6-1.0 cm LVIDd: 4.75 3.9-5.3/4.2-5.9 cm LVIDd Index: 2.32 2.4-3.2/2.2-3.1 cm/m2 LVIDs: 3.07 2.0-3.6 cm LVPWd: 0.78 0.7-1.1 cm LA Diam: 3.20 2.7-3.8/3.0-4.0 cm LAIDs Index: 1.56 1.5-2.3 cm/m2 LV Mass: 146.00 67-162/88-224 g LV Mass Index: 71.22 43-95/49-115 g/m2 LVOT Diam: 2.00 3.0+(-)1.3 cm 2D Systolic Function EF 4C: 63.10 >55% EF 2C: 64.10 >55% EF BiP: 63.10 >55% Mitral Valve MV Pk E: 0.51 MV PK A: 0.33 MV Decel Time: 182.00 E/A: 1.60 E'Lateral: 16.20 E'Medial: 15.40 E/E' Med: 3.30 E/E' Lat: 3.20 PHT: 53.00 MVA PHT: 4.15 Decel [place]: 2.83 Aortic Valve AoV Pk Mani: 1.28 AoV Mn Mani: 0.87 AoV VTI: 0.27 AoV Pk Grad: 7.00 Aov Mn Grad: 3.00 BENNY Cont.VTI: 2.47 LVOT LVOT Pk Mani: 1.03 LVOT Mn Mani: 0.67 LVOT VTI: 0.21 LVOT Pk Grad: 4.00 LVOT Mn Grad: 2.00 LVOT Diam: 2.00 LVOT Area: 3.14 Diastolic Function MV Pk E: 0.51 MV Pk A: 0.33 E/A: 1.60 E'Medial: 15.40 E/E' Med: 3.30 E' Laterial: 16.20 E/E' Lat: 3.20 Right Ventricle TAPSE (mm): 21.50 TVS' Mani: 13.80 Tricuspid Valve TR Pk Amni: 1.95 TR Pk Grad: 15.00 RA Press: 8.00 RVSP: 23.00 Great Vessels Aorta Sinus of Valsalva: 2.93 2.0-3.5 cm Ao Asc: 2.70 2.1-3.4 cm Updated in Other Vendor System with Status of Final Roderick Mckeon MD electronically signed on 01/05/2023 11:15:55 AM with status of Final
--- NOTE | 2023-01-05 07:12 | PHA.MEDREC ---
Pharmacy Consult ? Medication Reconciliation Pharmacy has completed the medication reconciliation. Reviewed med rec done by nursing
[2023-01-05 07:29] VITALS: BP 131/78; PULSE 87; RESP 17; TEMP 36.8; O2SAT 97
[2023-01-05] MEDS: ondansetron HCL 4 MG/2 ML VIAL IVPUSH ×2 (07:33→20:17)
--- NOTE | 2023-01-05 09:34 | P.CONCA_ITS ---
History of Present Illness History of Present Illness Date of Service: 01/05/23 Chief complaint: Dyspnea Narrative: This is a cardiology consultation regarding shortness of breath and palpi tations. Patient states that she was told to have mitral/tricuspid regurgitation in the past. Otherwise, no clear cardiac issues like cardiomyopathy. Apparently, has a history of asthma. She does have occasional shortness of breath but generally does okay. Over the last 2-3 days or so, she has been having shortness of breath even on slight exertion. She also feels intermittently short of breath just lying in bed. Some nonspecific chest pressure. Sensations of heart racing. Hence she is in the ER. Per admission H and P, her O2 sats went into the 80s upon ambulation. That led to the h ospitalization. Review of Systems Review of Systems: Yes all other systems are reviewed and are negative Constitutional: Constitutional: Reports as per HPI and Reports no additional constitutional complaints Eyes: Eyes: Reports as per HPI and Denies no additional eye complaints ENT: Denies system reviewed and no additional complaints, except as documented and Reports as per HPI Cardiovascular: Cardiovascular: Reports as per HPI, Reports no additional cardiovascular complaints, Denies acrocyanosis, Denies cool extremities, Denies chest pain, Denies leg edema, Denies lightheadedness, Reports palpitations and Reports dyspnea Respiratory: Respiratory: Reports as per HPI, Denies no additional respiratory complaints and Reports dyspnea Gastrointestinal: Gastrointestinal: Reports as per HPI and Denies no additional gastrointestinal complaints Genitourinary: Genitourinary: Reports as per HPI Musculoskeletal: Musculoskeletal: Reports no additional musculoskeletal complaints and Reports as per HPI Integumentary/Breasts: Skin/Breast: Reports system reviewed and no additional complaints, except as docu Neurologic: Reports system reviewed and no additional complaints, except as documented and Reports as per HPI Psychiatric: Psychiatric: Reports no additional psychiatric complaints and Reports as per HPI Endocrine: Endocrine: Reports no additional endocrine complaints, Reports as per HPI and Reports palpitations Hematologic/Lymphatic: Hematologic/Lymphatic: Reports no additional hematologic/lymphatic complaints and Reports as per HPI Allergic/Immunologic: Allergic/Immunologic: Reports no additional allergic/immunologic complaints and Reports as per HPI FORMERLY [facility] Past Medical History Medical History Abnormal thyroid biopsy Acne Acne comedone Anxiety Asthma Cough Enlarged thyroid History of asthma Thyroid nodule TMJ (dislocation of temporomandibular joint) TMJ (temporomandibular joint syndrome) Vitamin D deficiency Family History Family History Father Cancer of prostate Heart murmur Mother CVD (cardiovascular disease) History of heart attack Brother No problems noted. Sister No problems noted. 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/hazards: No Cognitive needs: No Hearing needs: No Vision needs: No Meds Allergies Allergy/AdvReac Type Severity Reaction Status Date / Time latex [LATEX] Allergy Mild RASH Verified 01/04/23 21:44 Active Medications: Current Medications Acetaminophen (Acetaminophen 325 Mg Tablet) 650 mg PO Q6H PRN PRN Reason: Pain, Mild (Pain Scale 1-3) Acetaminophen (Acetaminophen Supp 650 Mg Supp.Rect) 650 mg AR Q6H PRN PRN Reason: Pain, Mild (Pain Scale 1-3) Diclofenac Sodium (Diclofenac Sodium Delayed Rel 50 Mg Tablet.Dr) 50 mg PO BID [facility] Enoxaparin Sodium (Enoxaparin Sodium 40 Mg/0.4 Ml Syringe) 40 mg SUBCUT Q24H VICENTE Last Admin: 01/05/23 05:33 Dose: 40 mg Melatonin (Melatonin 3 Mg Tablet) 6 mg PO BEDTIME PRN PRN Reason: Insomnia Non-Formulary Medication (Desog-E.Estradiol/E.Estradiol) 1 tab PO DAILY [facility] Ondansetron HCl (Ondansetron Hcl 4 Mg/2 Ml Vial) 4 mg IVPUSH Q8H PRN PRN Reason: Nausea and Vomiting Last Admin: 01/05/23 07:33 Dose: 4 mg Pharmacy Consult (Consult Rx Perform Med Rec) 1 each MISCELLANE ONCE PRN PRN Reason: Consult order Sodium Chloride (0.9 % Sodium Chloride Flush 3 Ml Syringe) 3 ml IVFLUSH QSHIFT VICENTE Physical Exam Vital Signs: Vital Signs: Last Vital Signs Temp 98.3 F 01/05/23 07:29 Pulse 87 01/05/23 07:29 Resp 17 01/05/23 07:29 BP 131/78 01/05/23 07:29 Pulse Ox 97 01/05/23 07:29 O2 Del Method Room Air 01/05/23 07:29 BMI result Body Mass Index 23.5 Const: General: comfortable and no acute distress Orientation/consci ousness: patient oriented x3 HEENT: Other: Unremarkable Head: Yes normal to inspection Neck: Neck: Yes normal visual inspection Chest: Chest palpation & inspection: normal inspection of the chest Resp: Other: Occasional rhonchi. Cardio: Palpation: normal PMI Heart sounds: S1 normal heart sound present, S2 normal heart sound present, no gallops, no murmurs and no rubs GI: Palpation (GI): Soft to palpation Back/Spine/Pelvis: Other: unremarkable Skin: General skin exam: no rashes or lesions noted Neuro: General: patient oriented x3 Extrem: General: Yes normal to inspection Psych: Mental Status: mental status grossly normal Objective Labs and Meds 01/05/23 05:10 01/05/23 05:10 Lab results: Laboratory Results - last 24 hr 01/04/23 01/04/23 01/04/23 22:06 22:06 22:06 WBC 6.7 RBC 4.74 Hgb 13.2 Hct 40.7 MCV 85.9 MCH 27.8 MCHC 32.4 RDW 13.1 Plt Count 240 MPV 10.3 Immature Gran % (Auto) 0.1 Neut % (Auto) 41.9 L Lymph % (Auto) 44.4 H [place] % (Auto) 8.6 Eos % (Auto) 4.0 Baso % (Auto) 1.0 Lymph # (Auto) 3.0 [place] # (Auto) 0.6 Eos # (Auto) 0.3 Baso # (Auto) 0.1 Abs Immat Gran (auto) 0.01 Absolute Neuts (auto) 2.8 Absolute Nucleated RBC 0.000 Nucleated RBC % (auto) 0.0 PT INR APTT D-Dimer High Sensitivty VBG pH VBG pCO2 VBG pO2 VBG HCO3 VBG O2 Saturation VBG Base Excess Sodium 139 Potassium 3.4 Chloride 106 Carbon Dioxide 25 Anion Gap 11 L BUN 13 Creatinine 0.88 Estim Creat Clear Calc 112.2 Estimated GFR > 60 Random Glucose 86 Calcium 9.2 Total Bilirubin 0.7 AST 14 ALT 9 Alkaline Phosphatase 32 L Troponin I High Sens B-Natriuretic Peptide Total Protein 7.0 Albumin 4.4 Beta HCG, Quant < 2 COVID-19 (AIYANA) COVID-19 Clin Com Influenza Type A (KEITH) Negative Influenza Type B (KEITH) Negative Influenza A & B Note See Note 01/04/23 01/04/23 01/05/23 22:06 22:06 00:13 WBC RBC Hgb Hct MCV MCH MCHC RDW Plt Count MPV Immature Gran % (Auto) Neut % (Auto) Lymph % (Auto) [place] % (Auto) Eos % (Auto) Baso % (Auto) Lymph # (Auto) [place] # (Auto) Eos # (Auto) Baso # (Auto) Abs Immat Gran (auto) Absolute Neuts (auto) Absolute Nucleated RBC Nucleated RBC % (auto) PT 13.9 H INR 1.2 H APTT 39.7 H D-Dimer High Sensitivty < 150 VBG pH VBG pCO2 VBG pO2 VBG HCO3 VBG O2 Saturation VBG Base Excess Sodium Potassium Chloride Carbon Dioxide Anion Gap BUN Creatinine Estim Creat Clear Calc Estimated GFR Random Glucose Calcium Total Bilirubin AST ALT Alkaline Phosphatase Troponin I High Sens B-Natriuretic Peptide < 10 Total Protein Albumin Beta HCG, Quant COVID-19 (AIYANA) Negative COVID-19 Clin Com See Note Influenza Type A (KEITH) Influenza Type B (KEITH) Influenza A & B Note 01/05/23 01/05/23 01/05/23 00:53 05:10 05:10 WBC 7.5 RBC 4.60 Hgb 12.7 Hct 39.1 MCV 85.0 MCH 27.6 MCHC 32.5 RDW 13.0 Plt Count 227 MPV 10.1 Immature Gran % (Auto) 0.1 Neut % (Auto) 38.1 L Lymph % (Auto) 47.5 H [place] % (Auto) 7.9 Eos % (Auto) 5.6 H Baso % (Auto) 0.8 Lymph # (Auto) 3.5 [place] # (Auto) 0.6 Eos # (Auto) 0.4 Baso # (Auto) 0.1 Abs Immat Gran (auto) 0.01 Absolute Neuts (auto) 2.8 Absolute Nucleated RBC 0.000 Nucleated RBC % (auto) 0.0 PT INR APTT D-Dimer High Sensitivty VBG pH 7.39 VBG pCO2 41 VBG pO2 36 VBG HCO3 25 VBG O2 Saturation 47.0 VBG Base Excess 0.4 Sodium 138 Potassium 3.6 Chloride 105 Carbon Dioxide 25 Anion Gap 12 BUN 11 Creatinine 0.81 Estim Creat Clear Calc 122.0 Estimated GFR > 60 Random Glucose 92 Calcium 8.7 Total Bilirubin AST ALT Alkaline Phosphatase Troponin I High Sens B-Natriuretic Peptide Total Protein Albumin Beta HCG, Quant COVID-19 (AIYANA) COVID-19 Clin Com Influenza Type A (KEITH) Influenza Type B (KEITH) Influenza A & B Note 01/05/23 05:10 WBC RBC Hgb Hct MCV MCH MCHC RDW Plt Count MPV Immature Gran % (Auto) Neut % (Auto) Lymph % (Auto) [place] % (Auto) Eos % (Auto) Baso % (Auto) Lymph # (Auto) [place] # (Auto) Eos # (Auto) Baso # (Auto) Abs Immat Gran (auto) Absolute Neuts (auto) Absolute Nucleated RBC Nucleated RBC % (auto) PT INR APTT D-Dimer High Sensitivty VBG pH VBG pCO2 VBG pO2 VBG HCO3 VBG O2 Saturation VBG Base Excess Sodium Potassium Chloride Carbon Dioxide Anion Gap BUN Creatinine Estim Creat Clear Calc Estimated GFR Random Glucose Calcium Total Bilirubin AST ALT Alkaline Phosphatase Troponin I High Sens < 3.5 B-Natriuretic Peptide Total Protein Albumin Beta HCG, Quant COVID-19 (AIYANA) COVID-19 Clin Com Influenza Type A (KEITH) Influenza Type B (KEITH) Influenza A & B Note ECG Interpretation: EKG shows sinus rhythm at 61/Min; no significant ST-T changes; possible left atrial enlargement and otherwise unremarkable. Normal AR and corrected QT. Imaging Radiologist's impression: Impressions Chest X-Ray 01/04/23 21:56 IMPRESSION: Unremarkable examination. Chest CTA 01/05/23 02:57 IMPRESSION: 1. No pulmonary embolism or other acute intrathoracic abnormality. 2. Mildly dilated main pulmonary artery can be seen with pulmonary artery hypertension. VTE: negative Assessment and Plan (1) Hypoxia: Status: Acute (2) SOB (shortness of breath): Status: Acute (3) Asthma: Status: Acute Plan High sensitivity troponins within normal limits. Cardiac BNP is less than 10. With regard to the valve disease hx, prior [facility] echocardiogram reviewed from 2020. That showed LVEF of 55-60%, normal diastolic function, mild mitral regurgitation and trace tricuspid regurgitation. No evidence of pulmonary hypertension. However, the CTA there is description of mild dilatation of main pulmonary artery which may be indicative of pulmonary hypertension. Due to a new symptoms, we can recheck echocardiogram. Based on findings, further planning. Time Spent With Patient Time: Total time managing care of this patient today 60 minutes. This includes review of chart, outside records, documentation, discussion with RN, hospitalist, coordination of care. Procedures Date of Service Date of Service: 01/05/23
[2023-01-05 09:35] VITALS: O2SAT 87
--- NOTE | 2023-01-05 09:35 | PC.NURSE ---
continues to get sob/desat with ambulation
[2023-01-05 10:06] LABS: Thyroid Stimulating Hormone 2.86 uIU/mL (0.32-4.0)
[2023-01-05 11:52] VITALS: BP 131/78; PULSE 87; RESP 17; TEMP 36.8
[2023-01-05] MEDS: Acetaminophen 325 MG TABLET 650 MG PO ×2 (14:37→20:18)
[2023-01-05 17:02] VITALS: BMI 24.5
[2023-01-05] MEDS: 0.9 % Sodium Chloride Flush 3 ML SYRINGE IVFLUSH (20:17)
[2023-01-05] MEDS: Melatonin 3 MG TABLET 6 MG PO (20:19)
[2023-01-05] MEDS: Diclofenac Sodium Delayed Rel 50 MG TABLET.DR PO (20:19)
[2023-01-05 22:33] VITALS: BP 126/76; PULSE 67; RESP 18; TEMP 36.6; O2SAT 100
[2023-01-06 03:06] VITALS: BP 110/75; PULSE 80; RESP 14; TEMP 37; O2SAT 97
[2023-01-06] MEDS: Enoxaparin Sodium 40 MG/0.4 ML SYRINGE SUBCUT (04:36)
[2023-01-06 07:18] VITALS: BP 105/57; PULSE 66; RESP 18; TEMP 36.5; O2SAT 98
[2023-01-06] MEDS: Diclofenac Sodium Delayed Rel 50 MG TABLET.DR PO (08:24)
--- NOTE | 2023-01-06 08:28 | MHC.CM.PN ---
CM met with Patient at bedside. Patient lives in an apartment with her Parents and she required no services nor DME [employer]. Home/self care is the goal and CM has initiated and will follow for dc planning. Patient asencio received [employer] vax x3 and her PCP is Liz Magallanes.
--- NOTE | 2023-01-06 09:36 | P.PNCA_ITS ---
Subjective Subjective Date of Service: 01/06/23 Interval history: She states she is feeling fine. No clear cardiac symptoms. Review of Systems Review of Systems Yes all other systems are reviewed and are negative Constitutional: Reports as per HPI and Reports no additional constitutional complaints Eyes: Reports as per HPI and Denies no additional eye complaints Denies system reviewed and no additional complaints, except as documented and Reports as per HPI Cardiovascular: Reports as per HPI, Reports no additional cardiovascular complaints, Denies acrocyanosis, Denies cool extremities, Denies chest pain, Denies leg edema, Denies lightheadedness, Denies palpitations and Denies dyspnea Respiratory: Reports as per HPI, Denies no additional respiratory complaints and Denies dyspnea Gastrointestinal: Reports as per HPI and Denies no additional gastrointestinal complaints Genitourinary: Reports as per HPI Musculoskeletal: Reports no additional musculoskeletal complaints and Reports as per HPI Skin/Breast: Reports system reviewed and no additional complaints, except as docu Reports system reviewed and no additional complaints, except as documented and Reports as per HPI Psychiatric: Reports no additional psychiatric complaints and Reports as per HPI Endocrine: Reports no additional endocrine complaints, Reports as per HPI and Denies palpitations Hematologic/Lymphatic: Reports no additional hematologic/lymphatic complaints and Reports as per HPI Allergic/Immunologic: Reports no additional allergic/immunologic complaints and Reports as per HPI Physical Exam Vital Signs: Last Vital Signs Temp 97.7 F 01/06/23 07:18 Pulse 66 01/06/23 07:18 Resp 18 01/06/23 07:18 BP 105/57 L 01/06/23 07:18 Pulse Ox 98 01/06/23 07:18 O2 Del Method Room Air 01/06/23 07:18 BMI result Body Mass Index 24.5 Const General: comfortable and no acute distress Orientation/consciousness: patient oriented x3 HEENT Other: Unremarkable Head: Yes normal to inspection Neck Neck: Yes normal visual inspection Chest Chest palpation & inspection: normal inspection of the chest Resp Auscultation: clear to auscultation bilaterally Cardio Palpation: normal PMI Heart sounds: S1 normal heart sound present, S2 normal heart sound present, no gallops, no murmurs and no rubs GI Palpation (GI): Soft to palpation Back/Spine/Pelvis Other: unremarkable Skin General skin exam: no rashes or lesions noted Neuro General: patient oriented x3 Extrem General: Yes normal to inspection Psych Mental Status: mental status grossly normal Objective Labs and Meds 01/05/23 05:10 01/05/23 05:10 Lab results: Laboratory Results - last 24 hr 01/05/23 05:10 TSH 2.86 Progress Note: A&P Assessment and plan (1) Hypoxia: Status: Acute (2) SOB (shortness of breath): Status: Acute (3) Asthma: Status: Acute Plan High sensitivity troponins within normal limits. Cardiac BNP is less than 10. With regard to the valve disease hx, prior [facility] echocardiogram reviewed from 2020. That showed LVEF of 55-60%, normal diastolic function, mild mitral regurgitation and trace tricuspid regurgitation. No evidence of pulmonary hypertension. In the repeat echocardiogram from yesterday, LVEF 63% with normal strain. No significant valvular issues are pulmonary hypertension. Overall, no clear etiology for her symptoms from cardiac standpoint. Reassurance only. Discussed with Dr. Richardson Time Spent With Patient Time: Total time managing care of this patient today 30 minutes. This included review of chart, discussion with patient, hospitalist, documentation. Progress Note: Quality Stroke Does the patient have a stroke diagnosis?: No Procedures Date of Service Date of Service: 01/06/23
--- NOTE | 2023-01-06 11:09 | PM.DS ---
DS: Providers Provider Date of Service: 01/06/23 Date of admission: 01/05/23 04:11 Primary care physician: Liz Magallanes MD Consults: 01/05/23 04:44 Consult to Cardiology Routine Consulting Provider: [facility] Reason for consultation: palpitations and ambulatory hypoxia Has provider been notified: Yes DS: Diagnosis Discharge Diagnosis (1) Hypoxia: Status: Acute (2) SOB (shortness of breath): Status: Acute (3) Asthma: Status: Acute DS: Summary Hospital Course Hospital Course: History of presenting illness Date of Service: 01/05/23 Chief Complaint: Dyspnea This is a 27-year-old female with pertinent history of temporomandibular joint pain on NSAIDs, mild TR, MR presents to the emergency department evaluation dyspnea and palpitations.? Patient states over the last 3 days, she has experienced palpitations and dyspnea, worse with exertion.? Patient states palpitation and dyspnea are better with rest.? Patient also feels short of breath when she lays flat.? She feels better when she sits up in bed.? No leg swelling.? No history of similar complaints in the past.? Patient denies fever, chills, cough, abdominal pain, changes in urinary or bowel habits. In the emergency department, patient was found to be satting in the 80s upon ambulation. Hospital course: 27-year-old female with pertinent history of temporomandibular joint pain on NSAIDs, mild TR, MR presents to the emergency department evaluation dyspnea and palpitations, patient underwent extensive testing including Chest CTA, that showed no pulmonary embolism or acute intrathoracic abnormality, and echocardiogram showed normal left ventricular systolic function no wall motion, normal diastolic function no wall motion abnormality , No pulmonary hypertension noted no evidence of pericardial effusion, patient oxygenation remains stable during her stay, influenza screen and COVID test was negative, likely transient hypoxia with ambulation was related to viral illness since all symptoms resolved with negative workup patient is being discharged home. In regard to TMJ disorder recommend to continue NSAIDs and follow-up with primary care physician. Time Spent with Patient Time attestation: Total time managing care of this patient today ____ minutes. Discharge coordination time: Greater than 30 minutes Quality: Safe Use of Opioids Does Pt have an Active Cancer Diagnosis on the Problem List?: No Quality: Stroke Does the patient have a stroke diagnosis?: No Physical Exam Vital Signs: Vital Signs: Last Vital Signs Temp 97.7 F 01/06/23 07:18 Pulse 66 01/06/23 07:18 Resp 18 01/06/23 07:18 BP 105/57 L 01/06/23 07:18 Pulse Ox 98 01/06/23 07:18 O2 Del Method Room Air 01/06/23 07:18 BMI result Body Mass Index 24.5 Const: Other: General awake alert x3, resting comfortably in no acute distress. Neck supple no JVD. CVS regular rate rhythm, Respiratory lungs clear to auscultation, no respiratory distress, no wheeze, no rhonchi. Gastrointestinal abdomen soft, nontender, bowel sounds audible, no guarding , no rigidity. Extremities no edema. Neuro nonfocal Skin no rash Psych appropriate affect Discharge Plan Discharge Anticipated Discharge Date/Time: 01/06/23 11:05 Patient Disposition: Home, Self-Care Discharge Diagnosis: Acute hypoxia Referrals: Liz Magallanes MD [Primary Care Provider] - 1 Week Discharge Medications: Continued diclofenac potassium 50 mg tablet 50 mg PO BID Qty: 60 4RF desog-e.estradiol/e.estradiol 0.15-0.02 mgx21 /0.01 mg x 5 tablet 1 tab PO DAILY 28 Days Qty: 28 11RF Discharge Orders: Discharge Order (Routine); Ordered 01/06/23 Ordered By: Hayden Richardson Diet: Advance to usual diet Activity on Discharge: As tolerated Stand Alone Forms: Patient Portal Discharge page Care Plan Goals: Transient hypoxia resolved normal echocardiogram, no pulmonary embolism noted question viral infection resolved Health Concerns: As above Plan of Treatment: Follow-up with primary care physician call for appointment Assessment: As above
--- NOTE | 2023-01-06 11:17 | MHC.CM.PN ---
Patient has been medically cleared for dc to home today, self care.
== END 2023-01-06 12:24 | disposition home or self-care (01) | DRG 723 ==
LOC: HO.ED 01-05 00:14 → HO.EDOVER 01-05 04:47 → HO.IMC 01-05 14:09
PROVIDERS: Admitting Provider Student in an Organized Health Care Education/Training Program; Emergency Provider Internal Medicine; PCP Internal Medicine; Visit Provider Hospitalist
DX: B34.9 Viral infection, unspecified (principal); I08.1 Rheumatic disorders of both mitral and tricuspid valves; R00.2 Palpitations; R09.02 Hypoxemia; J45.909 Unspecified asthma, uncomplicated; M26.609 Unspecified temporomandibular joint disorder, unspecified side; Z20.822 Contact with and (suspected) exposure to COVID-19; Z91.040 Latex allergy status; Z79.3 Long term (current) use of hormonal contraceptives; Z79.899 Other long term (current) drug therapy
CPT/HCPCS: 36415; 71045; 71275; 80048; 80053; 82803; 83880; 84443; 84484; 84702; 85025; 85379; 85610; 85730; 87502; 87635; 93005; 93306; 93356; 99222; 99285; J1650; J2405; Q9957; Q9967

== ENCOUNTER 2023-05-12 10:54 | Outpatient (REF) | payer OTHER, SELFPAY | END 2023-05-12 10:55 | disposition home or self-care (01) | LOC: HO.LNP 10:54 | PROVIDERS: PCP Internal Medicine; Visit Provider Advanced Practice Midwife | DX: Z01.419 Encounter for gynecological examination (general) (routine) without abnormal findings (principal) | CPT/HCPCS: 88142 ==

== ENCOUNTER 2023-05-12 10:54 | Outpatient (AMB) | payer OTHER, SELFPAY ==
--- NOTE | 2023-05-12 11:01 | A.OFFVIS_ITS ---
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 Scribed for SARAH Huddleston by Chyna Simental medical affairs specialist, on 05/12/2023 at 11:17 am EST. Senior Technical Editor: Senior Technical Editor Present (Lashay) Allergies latex [LATEX] Allergy (Mild, Verified 05/12/23 11:02) RASH Is last menstrual period known: Yes Last menstrual period: 04/19/23 HPI HPI Comments History of Present Illness Details She is a premenopausal woman presenting for annual exam. Admits to previously having vaginal itching, discharge and irritation, treated with Monistat and still has some symptoms. 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 She admits to eating healthy and tries to stay active with exercise. Currently sexually active. Uses OCP's for BC. STD screening and blood work offered; she accepts. Denies family hx of breast, colon and ovarian cancer. Last pap smear 03/18/20. She denies any contraindications to control such as: migraines with aura, history of DVT or pulmonary emboli, high blood pressure, liver disease, thrombolic disorders, Lupus, +PUJA, or smoking. Reviewed use, side effects and warnings including A[facility]ES[facility] Medical History Abnormal thyroid biopsy Acne Acne comedone Anxiety Asthma Cough Enlarged thyroid History of asthma Thyroid nodule TMJ (dislocation of temporomandibular joint) TMJ (temporomandibular joint syndrome) Vitamin D deficiency Surgical History H/O wrist surgery History of bunionectomy History of knee surgery History of lobectomy of thyroid Family History Father Cancer of prostate Heart murmur FH: HTN (hypertension) Mother CVD (cardiovascular disease) History of heart attack Brother No problems noted. Sister No problems noted. 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 occupational exposures/hazards: No Cognitive needs: No Hearing needs: No Vision needs: No Female Reproductive History Menstrual Age of Menarche: 14 Date of last menstrual period: 04/19/23 control method: pills Total pregnancies: 0 Date of last pap smear: 03/18/20 (neg) Physical Exam Vital Signs: Last Vital Signs BP 102/60 05/12/23 11:02 BMI result Body Mass Index 25.9 Const General: cooperative, healthy appearing, no acute distress, well developed and alert Orientation/consciousness: patient oriented x3 HEENT Head: Yes normal to inspection Eyes General: appearance normal, both eyes and all related structures Neck Neck: Yes normal visual inspection Thyroid: Thyroid normal Chest Chest palpation & inspection: normal inspection of the chest Breast/axilla inspection: normal inspection of the breasts (no puckering, dimpling, peau de orange, retraction, discharge, masses) Breast/axilla palpation: normal palpation of the breasts Resp Effort & Inspection: normal respiratory effort GI Inspection: Yes normal to inspection Palpation (GI): Soft to palpation (to palpation) Rectal Exam - Female: deferred Other: erythema and edema of the vulva, mostly labia minora General: Yes bladder normal to inspection External Female Exam: normal external appearance and normal appearance of the urethra Speculum Exam - Vagina: normal appearance of the vagina, normal palpation and abnormal vaginal discharge white Speculum Exam - Cervix: normal appearance of the cervix and normal palpation Bimanual exam- vagina & uterus: normal palpation and normal palpation Bimanual Exam- Adnexa, other: normal adnexae and no masses Skin General skin exam: no rashes or lesions noted Neuro General: patient oriented x3 Cognition (Neuro): normal cognition Extrem General: Yes normal to inspection Psych Attitude: cooperative Thought process: Normal thought process present Assessment & Plan Assessment & Plan (1) Encounter for well woman exam: Code(s): Z01.419 - Encounter for gynecological examination (general) (routine) without abnormal findings Plan: Discussed: Current recommendations for pap smears per ASCCP guidelines Breast awareness and periodic self breast exams. Maintaining a healthy lifestyle including a well balanced diet and routine exercise. Advised to clean with water only, no soaps to the area, dry well and wear cotton underwear. Continue OCP. Monitor her bleeding and contact the office with any concerns. She was instructed to go to ER if she develops loss of vision, severe headache that does not resolve, chest pain, difficulty breathing, abdominal pain, or severe pain or tenderness in extremity. BV testing and GC/CT panel done today. STD blood work ordered. Await results and treat accordingly. All of her questions and concerns were addressed to the best of my ability. RTO in one year for AG. (2) Vaginal irritation: Code(s): N89.8 - Other specified noninflammatory disorders of vagina (3) Contraceptive surveillance: Code(s): Z30.40 - Encounter for surveillance of contraceptives, unspecified (4) Vaginal itching: Code(s): N89.8 - Other specified noninflammatory disorders of vagina Orders: Orders Bacterial Vaginosis Panel Today N89.8 - Other specified noninflammatory disorders of vagina CT NG by PCR Today N89.8 - Other specified noninflammatory disorders of vagina, Z20.2 - Contact with and (suspected) exposure to infections with a predominantly sexual mode of transmission HIV Ab/Ag Today Z20.2 - Contact with and (suspected) exposure to infections with a predominantly sexual mode of transmission Hepatitis C Antibody Today Z20.2 - Contact with and (suspected) exposure to infections with a predominantly sexual mode of transmission Hepatitis B Core Antibody Today Z20.2 - Contact with and (suspected) exposure to infections with a predominantly sexual mode of transmission Syphilis Screen Today Z20.2 - Contact with and (suspected) exposure to infections with a predominantly sexual mode of transmission Pap Smear Today Z01.419 - Encounter for gynecological examination (general) (routine) without abnormal findings Medications: Refilled desog-e.estradiol/e.estradiol 0.15-0.02 mgx21 /0.01 mg x 5 1 tab PO DAILY 84 tabs 4RF 28 days Coding Level of Care Code Est Pt Prev Care 18-39y([id number]) Diagnoses Encounter for well woman exam Z01.419 Vaginal irritation N89.8 Contraceptive surveillance Z30.40 Vaginal itching N89.8
[2023-05-12 11:02] VITALS: BP 102/60; BMI 25.9
== END 2023-05-12 11:41 | disposition home or self-care (01) ==
LOC: HO.HWS 10:54
PROVIDERS: PCP Internal Medicine; Visit Provider Advanced Practice Midwife
DX: Z01.419 Encounter for gynecological examination (general) (routine) without abnormal findings (principal); N89.8 Other specified noninflammatory disorders of vagina
CPT/HCPCS: 99395

== ENCOUNTER 2023-05-12 11:28 | Outpatient (REF) | payer OTHER, SELFPAY ==
[2023-05-12 14:49] LABS: Syphilis Screen Nonreactive (Nonreactive)
[2023-05-13 05:57] LABS: HBc Num1 0.08 S/CO (0.00-0.79); HIV AB/AG Nonreactive (Nonreactive); HIV Num 1 0.05 S/CO (0.00-0.99); Hepatitis B Core Antibody Nonreactive (Nonreactive); ~HepC Num1 0.08 S/CO (0.00-0.79); ~Hepatitis C Antibody Nonreactive (Nonreactive)
[2023-05-13 09:16] LABS: BV Int Neg Control Negative (Negative); BV Int Pos Control Positive (Positive)
[2023-05-13 15:23] LABS: CT PCR NOT DETECTED (Not Detect.); NG PCR NOT DETECTED (Not Detect.)
== END 2023-05-12 11:29 | disposition home or self-care (01) ==
LOC: HO.LAB 11:28
PROVIDERS: PCP Internal Medicine; Visit Provider Advanced Practice Midwife
DX: Z11.4 Encounter for screening for human immunodeficiency virus [HIV] (principal); N89.8 Other specified noninflammatory disorders of vagina; Z20.2 Contact with and (suspected) exposure to infections with a predominantly sexual mode of transmission
CPT/HCPCS: 0353U; 86704; 86780; 86803; 87389; 87480; 87510; 87660

== ENCOUNTER 2023-08-06 09:38 | Outpatient (AMB) | payer OTHER, SELFPAY ==
[2023-08-06 09:41] VITALS: BP 96/60; PULSE 77; O2SAT 100; BMI 27.2
--- NOTE | 2023-08-06 09:41 | A.OFFPC_ITS ---
Vital Signs 08/06/23 09:41 Height 6 ft 1 in Weight 206 lb BMI 27.2 BP 96/60 Blood Pressure Location Lt brachial Position Sitting Pulse 77 Pulse Source Pulse Oximeter Pulse Oximetry (%) 100 Oxygen Delivery Method Room Air Intake Visit Reasons: TMJ followup, med review Intake Note: Pt is here today for a follow up visit. Allergies latex [LATEX] Allergy (Mild, Verified 08/06/23 09:43) RASH Medication List - Last Reconciled 08/06/23 by Liz Magallanes MD albuterol sulfate 90 mcg/actuation 2 puffs inhalation Q6H PRN cyclobenzaprine 10 mg PO BEDTIME desog-e.estradiol/e.estradiol 0.15-0.02 mgx21 /0.01 mg x 5 1 tab PO DAILY 28 days diclofenac potassium 50 mg PO BID fluconazole (Diflucan) 150 mg PO ONCE PRN 1 day fluticasone propion-salmeterol (Advair Diskus) inhalation Tobacco use date assessed: 08/06/23 Dental Screening Dental Screen Date: 08/06/23 Did you have a dental visit in the last 12 months?: Yes Did you have a dental problem in the last 6 months where you did not have access to dental care?: No Was dental information given to patient?: Patient has dentist HPI TMJ followup, med review HPI Details Patient presents for the follow-up. She has been taking cyclobenzaprine occasionally for TMJ. Asthma has been stable patient has not been using Advair inhaler for few months. She uses albuterol once or twice a month only. Patient complains of yeast infection and [id number] cream did not relieved the symptoms. [facility] Medical History Abnormal thyroid biopsy Acne Acne comedone Anxiety Asthma Cough Enlarged thyroid History of asthma Thyroid nodule TMJ (dislocation of temporomandibular joint) TMJ (temporomandibular joint syndrome) Vitamin D deficiency Surgical History H/O wrist surgery History of bunionectomy History of knee surgery History of lobectomy of thyroid Family History Father Cancer of prostate Heart murmur FH: HTN (hypertension) Mother CVD (cardiovascular disease) History of heart attack Brother No problems noted. Sister No problems noted. 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 Edilberto Stone, Josefa Alvarez, Godfrey Elena and colleagues, with an educational kevin from [employer]. Review of Systems Const All systems reviewed & are unremarkable except as noted in HPI and below Reports no additional complaints Eyes Reports no additional complaints ENT Reports no additional complaints Resp Reports no additional complaints GI Reports no additional complaints Reports no additional complaints Physical exam (Primary Care) Vital Signs: Last Vital Signs Pulse 77 08/06/23 09:41 BP 96/60 08/06/23 09:41 Pulse Ox 100 08/06/23 09:41 Oxygen Delivery Method Room Air 08/06/23 09:41 BMI result Body Mass Index 27.2 Tobacco/Smoking Status: Tobacco use Status Tobacco use date assessed 08/06/23 08/06/23 09:45 Patient Tobacco Use Status Never used Tobacco 08/06/23 09:45 e-Cigarette/Vaping Use Never Used 08/06/23 09:45 Thrive Assessment: Date of Thrive Assessment Date Thrive assessed 01/18/23 08/06/23 09:45 Const General: no acute distress HENMT Head: Yes normal to inspection Mouth: Normal oral and palatal mucosa present Resp Effort & Inspection: normal respiratory effort Auscultation: clear to auscultation bilaterally Cardio Rhythm: regular rhythm Heart sounds: S1 normal heart sound present and S2 normal heart sound present Assessment and Plan Assessment & Plan (1) Asthma: Code(s): J45.909 - Unspecified asthma, uncomplicated Plan: Continue albuterol p.r.n.. Patient is aware to restart Advair if she needs to use albuterol more than twice a week (2) Vaginitis: Code(s): N76.0 - Acute vaginitis Plan: Diflucan sent (3) Acne comedone: Code(s): L70.0 - Acne vulgaris Plan: Patient will try clindamycin gel Orders: Orders Comprehensive [place]. Panel Fast 6 Months Z00.00 - Encounter for general adult medical examination without abnormal findings Complete Blood Count Auto Diff 6 Months Z00.00 - Encounter for general adult medical examination without abnormal findings Lipid Panel 6 Months Z00.00 - Encounter for general adult medical examination without abnormal findings Medications: New clindamycin phosphate 1% 1 appl topical BEDTIME 30 grams 0RF Changed From fluconazole (Diflucan) may repeat dose in one week if symptoms do not resolve 150 mg PO ONCE 1 day PRN 2 tabs 0RF personal To fluconazole may repeat dose in one week if symptoms do not resolve 150 mg PO ONCE PRN 2 tabs 0RF personal 1 day Refilled cyclobenzaprine 10 mg PO BEDTIME 30 tabs 3RF Discontinued diclofenac potassium Discontinued Reason: Doctor's Order 50 mg PO BID 60 tabs 4RF Coding Level of Care Code Est Pt Level 4 (24215) Diagnoses Asthma J45.909 Vaginitis N76.0 Acne comedone L70.0
== END 2023-08-06 10:15 | disposition home or self-care (01) ==
PROVIDERS: PCP Internal Medicine; Visit Provider Internal Medicine
DX: J45.909 Unspecified asthma, uncomplicated (principal); N76.0 Acute vaginitis; L70.0 Acne vulgaris
CPT/HCPCS: 99214

== ENCOUNTER 2023-10-15 11:01 | Outpatient (REF) | payer OTHER, SELFPAY ==
[2023-10-16 09:08] LABS: CT PCR NOT DETECTED (Not Detect.); NG PCR NOT DETECTED (Not Detect.)
[2023-10-16 12:14] LABS: BV Int Neg Control Negative (Negative); BV Int Pos Control Positive (Positive)
== END 2023-10-15 11:02 | disposition home or self-care (01) ==
LOC: HO.LNP 11:01
PROVIDERS: PCP Internal Medicine; Visit Provider Advanced Practice Midwife
DX: N94.10 Unspecified dyspareunia (principal); N89.8 Other specified noninflammatory disorders of vagina
CPT/HCPCS: 0353U; 87480; 87510; 87660

== ENCOUNTER 2023-10-15 11:01 | Outpatient (AMB) | payer OTHER, SELFPAY ==
--- NOTE | 2023-10-15 11:04 | MHC.OFFVIS ---
Intake Vital Signs 10/15/23 11:08 Height 6 ft 1 in Weight 205 lb 0.478 oz BMI 27.0 BP 122/74 Intake Visit Reasons: pain with intercourse Staffing Manager Required: No Information Interpreted: non-clinical & clinical Insurance Clerk: Insurance Clerk Present ([employer] NAQVI) Accompanied by: Self / Same As Patient Allergies latex [LATEX] Allergy (Mild, Verified 10/15/23 11:09) RASH Is last menstrual period known: Yes Last menstrual period: 10/08/23 HPI HPI Comments History of Present Illness Details Patient is here today with complaints of dyspareunia for the last several months, she had tried several different position changes without resolution of the discomfort. Denies any nausea, vomiting, diarrhea, constipation, or urinary symptoms. She also denies any abnormal vaginal discharges including odors. She is currently taking her control pills and having no issues with that or her cycle. [facility] Medical History TMJ (dislocation of temporomandibular joint) TMJ (temporomandibular joint syndrome) Vitamin D deficiency Anxiety Abnormal thyroid biopsy Thyroid nodule Enlarged thyroid Acne comedone Acne Asthma Cough History of asthma Surgical History History of lobectomy of thyroid H/O wrist surgery History of bunionectomy History of knee surgery Family History Father Cancer of prostate Heart murmur FH: HTN (hypertension) Mother CVD (cardiovascular disease) History of heart attack Brother No problems noted. Sister No problems noted. 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 occupational exposures/hazards: No Cognitive needs: No Hearing needs: No Vision needs: No Female Reproductive History Menstrual Age of Menarche: 14 Date of last menstrual period: 10/08/23 control method: pills Review of Systems Const All systems reviewed & are unremarkable except as noted in HPI and below Physical Exam Vital Signs: Last Vital Signs BP 122/74 10/15/23 11:08 BMI result Body Mass Index 27.0 Const General: cooperative, healthy appearing and no acute distress Orientation/consciousness: patient oriented x3 GI Inspection: Yes normal to inspection Palpation (GI): Soft to palpation and Other GI palpation findings present (Nontender) Rectal Exam - Female: visual inspection normal General: Yes bladder normal to palpation External Female Exam: normal appearance of the urethra Speculum Exam - Vagina: normal appearance of the vagina, normal palpation and normal vaginal discharge Speculum Exam - Cervix: normal appearance of the cervix and normal palpation Bimanual exam- vagina & uterus: normal bimanual exam, normal palpation, uterine size normal, bladder normal to palpation, normal palpation, uterine shape normal and non-tender Bimanual Exam- Adnexa, other: normal adnexae and Other (Slight discomfort and fullness on the left side) Neuro General: patient oriented x3 Assessment & Plan Assessment & Plan (1) Dyspareunia in female: Code(s): N94.10 - Unspecified dyspareunia (2) Unspecified dyspareunia: Code(s): N94.10 - Unspecified dyspareunia Plan Discussed workup possible causes for pelvic pain including: Infection, ovarian cysts, other. Ultrasound, BV panel and GC chlamydia taken, urine pending. Advised pelvic rest and warnings comfort measures [id number] if needed or heating pad. Avoidance of intimacy if unable to be comfortable. If severe pain or increased pain out of proportion to report to the emergency room immediately for care. All of her questions and concerns were addressed to the best of my ability and shared decision making. She is agreeable to the plan of care. Return to the office a week after her ultrasound results for review and plan. Orders: Orders CT NG by PCR Today N89.8 - Other specified noninflammatory disorders of vagina Bacterial Vaginosis Panel Today N89.8 - Other specified noninflammatory disorders of vagina US pelvic and transvaginal Today N94.10 - Unspecified dyspareunia Coding Level of Care Code Est Pt Level 4 (31820) Diagnoses Dyspareunia in female N94.10 Unspecified dyspareunia N94.10
[2023-10-15 11:08] VITALS: BP 122/74; BMI 27.0
== END 2023-10-15 12:42 | disposition home or self-care (01) ==
LOC: HO.HWS 11:01
PROVIDERS: PCP Internal Medicine; Visit Provider Advanced Practice Midwife
DX: N94.10 Unspecified dyspareunia (principal)
CPT/HCPCS: 99214

== ENCOUNTER 2023-11-04 13:16 | Outpatient (REF) | payer OTHER, SELFPAY ==
--- NOTE | ~2023-11-04 | US_ITS ---
EXAMINATION: US PELVIS CLINICAL INFORMATION: Dyspareunia; the patient's last menstrual period began 2 days prior. COMPARISON: Pelvic ultrasound dated 05/25/2019. TECHNIQUE: Ultrasound of the pelvis is performed using both transabdominal and transvaginal transducers along with Doppler. Transvaginal imaging is performed due to inadequate visualization transabdominally. FINDINGS: Uterus: The uterus is anteverted and anteflexed. The uterus measures 8.0 x 2.9 x 4.9 cm. Nabothian cysts are seen within the cervix. There are small calcifications within the cervix, likely a sequela of prior inflammation or hemorrhage. The double wall endometrial thickness is 0.2 mm. The uterus is smooth in contour and has normal myometrial echogenicity. No visible fibroid. Adnexa: Both ovaries are visualized. There is normal color flow to the adnexa. There is no ovarian torsion. A small amount nonspecific free fluid is seen within the left adnexal region.. Right ovary measures 3.2 x 1.0 x 1.7 cm, volume 2.9 mL. There are multiple follicles, some showing a string of pearls arrangement. Left ovary measures 2.8 x 1.4 x 1.6 cm, volume 1.6 mL. There are multiple follicles, some showing a string of pearls arrangement. US/US pelvic and transvaginal IMPRESSION: 1. A small amount of nonspecific free fluid is seen in the left adnexal region. 2. Nabothian cysts are seen within the cervix. 3. There are multiple ovarian follicles, some showing a string of pearls arrangement. This appearance can be associated with polycystic ovary syndrome; however, these ultrasound features are not pathognomonic and they require clinical correlation.
== END 2023-11-04 13:17 | disposition home or self-care (01) ==
LOC: HO.US 13:16
PROVIDERS: PCP Internal Medicine; Visit Provider Advanced Practice Midwife
DX: N94.10 Unspecified dyspareunia (principal)
CPT/HCPCS: 76830; 76856

== ENCOUNTER 2023-11-19 08:07 | Outpatient (AMB) | payer OTHER, SELFPAY ==
[2023-11-19 08:12] VITALS: BP 122/76; PULSE 78; TEMP 36.7; O2SAT 98; BMI 28.2
--- NOTE | 2023-11-19 08:12 | AM.OFFWIN_ITS ---
Intake Vital Signs 11/19/23 08:12 Height 6 ft 1 in Weight 214 lb BMI 28.2 BP 122/76 Blood Pressure Location Lt brachial Position Sitting Pulse 78 Pulse Source Pulse Oximeter Temp 98.1 F Temp Source Oral Pulse Oximetry (%) 98 Oxygen Delivery Method Room Air Intake Visit Reasons: Est/ upper back pain (lobby masked) Intake Note: pt is here for c.o upper back pain, chest congestion and feels like its on fire , patient states she works in the [employer] field and her patients have been postive for RSV. a little over 1 week Patient Tobacco Use Status: Never used Tobacco Allergies latex [LATEX] Allergy (Mild, Verified 11/19/23 08:12) RASH Do you need a note to return to daycare/school/sports/work: Yes HPI HPI Comments History of Present Illness Details 28 female patient presents to walk in [facility] with c/o chest congestion, and upper back pain since Wednesday. Denies fevers, chills, nausea or vomiting. She has been hydrating well at home and appetite good. Reports pain with swallowing and feels like her throat and chest are on-fire. 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 [facility] Medical History TMJ (dislocation of temporomandibular joint) TMJ (temporomandibular joint syndrome) Vitamin D deficiency Anxiety Abnormal thyroid biopsy Thyroid nodule Enlarged thyroid Acne comedone Acne Asthma Cough History of asthma Surgical History History of lobectomy of thyroid H/O wrist surgery History of bunionectomy History of knee surgery Family History Father Cancer of prostate Heart murmur FH: HTN (hypertension) Mother CVD (cardiovascular disease) History of heart attack Brother No problems noted. Sister No problems noted. 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 occupational exposures/hazards: No Cognitive needs: No Hearing needs: No Vision needs: No Female Reproductive History Menstrual Age of Menarche: 14 Review of Systems Const All systems reviewed & are unremarkable except as noted in HPI and below Physical Exam Vital Signs: Last Vital Signs Temp 98.1 F 11/19/23 08:12 Pulse 78 11/19/23 08:12 BP 122/76 11/19/23 08:12 Pulse Ox 98 11/19/23 08:12 Oxygen Delivery Method Room Air 11/19/23 08:12 BMI result Body Mass Index 28.2 Const General: comfortable and no acute distress HEENT Head: Yes normocephalic Ears: external ears normal and TM's normal bilaterally General nose exam: No nasal discharge present and Abnormal mucous membranes and turbinates present boggy and erythematous Face and sinus: Yes sinuses nontender Mouth: Abnormal oral and palatal mucosa present erythematous and white patches Throat: Yes postnasal drainage Resp Effort & Inspection: normal respiratory effort Auscultation: clear to auscultation bilaterally Cardio Rate: regular rate Rhythm: regular rhythm Results AMB Rapid Strep AMB Rapid Strep Negative Last Edit by Omar Tian CMA on 11/19/23 08 :36 Results Reviewed Results Reviewed: Laboratory Last Values Strep Scn [facility] Negative 11/19/23 08:35 Assessment & Plan Assessment & Plan (1) Chest congestion: Code(s): R09.89 - Other specified symptoms and signs involving the circulatory and respiratory systems Plan: - OTC cold/chest remedies - Acetaminophen for pain relief - Warm fluids with honey - Rest - White patches oral and throat - Will Tx for Strept - Rapid negative. (2) Upper back pain: Code(s): M54.9 - Dorsalgia, unspecified Plan: - OTC cold/chest remedies - Acetaminophen for pain relief - Warm fluids with honey - Rest - White patches oral and throat - Will Tx for Strept - Rapid negative. Orders: Orders SARS-CoV2/FLU/RSV Today R09.89 - Other specified symptoms and signs involving the circulatory and respiratory systems AMB Rapid Strep Screen Today Z13.9 - Encounter for screening, unspecified Medications: New acetaminophen 1,000 mg (2 x 500 mg) PO Q6H PRN 30 caps 0RF pain (scale score 4- 6) M54.9 - Dorsalgia, unspecified amoxicillin 500 mg PO BID 7 days 14 caps 0RF R09.89 - Other specified symptoms and signs involving the circulatory and respiratory systems Coding Level of Care Code Est Pt Level 3 (62438) Diagnoses Chest congestion R09.89 Upper back pain M54.9 Time Spent (min) 15
== END 2023-11-19 09:32 | disposition home or self-care (01) ==
PROVIDERS: PCP Internal Medicine; Visit Provider Nurse Practitioner Family
DX: R09.89 Other specified symptoms and signs involving the circulatory and respiratory systems (principal); M54.9 Dorsalgia, unspecified; J02.9 Acute pharyngitis, unspecified
CPT/HCPCS: 87880; 99213

== ENCOUNTER 2023-11-19 11:41 | Outpatient (REF) | payer OTHER, SELFPAY ==
[2023-11-19 12:28] LABS: Influenza A PCR NEGATIVE (Negative); Influenza B PCR NEGATIVE (Negative); Resp Syncy Virus RNA Qual PCR NEGATIVE (Negative); SARS COV2 PCR INHOUSE NEGATIVE (Negative)
== END 2023-11-19 11:42 | disposition home or self-care (01) ==
LOC: HO.HMGCLNP 11:41
PROVIDERS: Visit Provider Nurse Practitioner Family
DX: Z11.52 Encounter for screening for COVID-19 (principal); Z20.822 Contact with and (suspected) exposure to COVID-19; R09.89 Other specified symptoms and signs involving the circulatory and respiratory systems
CPT/HCPCS: 0241U

== ENCOUNTER 2023-11-25 08:19 | Outpatient (AMB) | payer OTHER, SELFPAY ==
--- NOTE | 2023-11-25 08:19 | A.OFFVIS_ITS ---
Intake Intake Visit Reasons: Ultra sound follow up Intake Note: cell # [phone] First Grade Teacher: First Grade Teacher Present Allergies latex [LATEX] Allergy (Mild, Verified 11/25/23 08:19) RASH Is last menstrual period known: Yes Last menstrual period: 11/07/23 HPI HPI Comments History of Present Illness Details [facility] visit 08:33-09:52. Phone call due to Covid 19 Pandemic. I spent 18 minutes speaking with the patient on the phone plus an additional 5 minutes reviewing the chart and 5 minutes updating the medical record for a total of 28minutes. Patient presents via phone to discuss: Ultrasound results. History of dyspareunia. History of irregular menses and horrible acne prior to control usage at age 14 to 15 years old. She reports doing well on control. She denies any facial hair growth other than her normal hair pattern and Genetics. [facility] Medical History TMJ (dislocation of temporomandibular joint) TMJ (temporomandibular joint syndrome) Vitamin D deficiency Anxiety Abnormal thyroid biopsy Thyroid nodule Enlarged thyroid Acne comedone Acne Asthma Cough History of asthma Surgical History History of lobectomy of thyroid H/O wrist surgery History of bunionectomy History of knee surgery Family History Father Cancer of prostate Heart murmur FH: HTN (hypertension) Mother CVD (cardiovascular disease) History of heart attack Brother No problems noted. Sister No problems noted. 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 occupational exposures/hazards: No Cognitive needs: No Hearing needs: No Vision needs: No Female Reproductive History Menstrual Age of Menarche: 14 Duration of menses: 3-5 days Date of last menstrual period: 11/07/23 control method: pills Review of Systems Const All systems reviewed & are unremarkable except as noted in HPI and below Endo Reports no additional complaints Physical Exam Const General: cooperative, healthy appearing and no acute distress Psych Appearance: well kempt Attitude: cooperative Thought process: Normal thought process present Assessment & Plan Assessment & Plan (1) Encounter to discuss test results: Code(s): Z71.2 - Person consulting for explanation of examination or test findings (2) Irregular menses: Code(s): N92.6 - Irregular menstruation, unspecified (3) History of acne: Code(s): Z87.2 - Personal history of diseases of the skin and subcutaneous tissue Plan Discussed: Ultrasound findings including strings of pearls with ovary. She reports never being tested for PCOS when she was younger. Only treated by a regional service manager with topical creams and oral antibiotics for the acne. She is interested in having lab work done. Advised her she will remain off the control pills for about 4 weeks have an inserting press operator blood draw and then will return to the office 2 weeks later to discuss test results. All of her questions and concerns were addressed to the best of my ability and shared decision making. She is agreeable to the plan of care. This note is constructed using voice recognition software. While every effort has been made to ensure accuracy, hospital unit coordinator errors may have been included. Orders: Orders Testosterone, Free/Total Today L70.9 - Acne, unspecified, N92.6 - Irregular menstruation, unspecified Prolactin Today L70.9 - Acne, unspecified, N92.6 - Irregular menstruation, unspecified Thyroid Stimulating Hormone Today L70.9 - Acne, unspecified, N92.6 - Irregular menstruation, unspecified 15 Hydroxyprogesterone Today L70.9 - Acne, unspecified, N92.6 - Irregular menstruation, unspecified Telehealth Telehealth Location of provider rendering services: practice address Location of patient: other Patient Identification confirmed using: Name, : Yes Telehealth method: video Patient verbally consented to treatment: Yes Patient verbally consented to billing insurance company: Yes Patient informed of any privacy concerns related to visit: Yes Coding Level of Care Code Tele Est Pt Level 3 (14562) Diagnoses Encounter to discuss test results Z71.2 Irregular menses N92.6 History of acne Z87.2
== END 2023-11-25 10:58 | disposition home or self-care (01) ==
LOC: HO.HWS 08:19
PROVIDERS: PCP Internal Medicine; Visit Provider Advanced Practice Midwife
DX: Z71.2 Person consulting for explanation of examination or test findings (principal); N92.6 Irregular menstruation, unspecified; Z87.2 Personal history of diseases of the skin and subcutaneous tissue
CPT/HCPCS: 99213

== ENCOUNTER → 2023-11-25 08:19 | Outpatient (BNVA) | payer OTHER, SELFPAY | PROVIDERS: PCP Internal Medicine; Visit Provider Advanced Practice Midwife ==

== ENCOUNTER 2023-12-09 09:19 | Outpatient (AMB) | payer OTHER, SELFPAY ==
--- NOTE | 2023-12-09 10:06 | AM.OFFWIN_ITS ---
Intake Vital Signs 12/09/23 10:13 Weight 209 lb BP 108/70 Blood Pressure Location Lt brachial Position Sitting Pulse 78 Pulse Source Pulse Oximeter Temp 98.5 F Temp Source Oral Pulse Oximetry (%) 98 Oxygen Delivery Method Room Air Intake Visit Reasons: EST/dry cough and ear pain([phone]) Intake Note: Patient here for dry cough, ear pain and sob. Patient Tobacco Use Status: Never used Tobacco Allergies latex [LATEX] Allergy (Mild, Verified 12/09/23 10:07) RASH Do you need a note to return to daycare/school/sports/work: No HPI EST/dry cough and ear pain([phone]) HPI Details This is a 28-year-old female patient who presents today with a nearly month history of sore throat, productive cough, ear pain, generalized fatigue and body aches. She was seen here on 11/19, and was started on amoxicillin for presumed strep pharyngitis, given presentation/physical findings. Rapid strep was negative at that time. She states that she never improved, and in fact symptoms have worsened over the last week or so, she now has bilateral ear pain and pressure, left greater than right. Also has upper respiratory chest co ngestion/tightness and productive cough with green sputum. Denies fever. Denies GI symptoms. [facility] Medical History TMJ (dislocation of temporomandibular joint) TMJ (temporomandibular joint syndrome) Vitamin D deficiency Anxiety Abnormal thyroid biopsy Thyroid nodule Enlarged thyroid Acne comedone Acne Asthma Cough History of asthma Surgical History History of lobectomy of thyroid H/O wrist surgery History of bunionectomy History of knee surgery Family History Father Cancer of prostate Heart murmur FH: HTN (hypertension) Mother CVD (cardiovascular disease) History of heart attack Brother No problems noted. Sister No problems noted. 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 occupational exposures/hazards: No Cognitive needs: No Hearing needs: No Vision needs: No Female Reproductive History Menstrual Age of Menarche: 14 Review of Systems Const All systems reviewed & are unremarkable except as noted in HPI and below Physical Exam Vital Signs: Last Vital Signs Temp 98.5 F 12/09/23 10:13 Pulse 78 12/09/23 10:13 BP 108/70 12/09/23 10:13 Pulse Ox 98 12/09/23 10:13 Oxygen Delivery Method Room Air 12/09/23 10:13 Const General: cooperative and ill appearing acutely HEENT Head: Yes normal to inspection Ears: hearing grossly normal bilaterally, external ears normal and TM abnormal wth effusion purulent bilateral and erythematous bilateral General nose exam: Normal external nose present and Normal nasal mucous membranes and turbinates present Throat: Yes posterior oropharynx normal Neck Neck: Yes no lymphadenopathy Resp Effort & Inspection: normal respiratory effort and Actively coughing Quality: productive Auscultation: rhonchi upper bilaterally Cardio Jugular venous distension: no JVD Palpation: normal PMI Rate: regular rate Rhythm: regular rhythm Skin General skin exam: no rashes or lesions noted Extrem General: Yes capillary refill normal and Yes no clubbing, cyanosis or edema Psych Appearance: grossly normal Mental Status: mental status grossly normal Speech and movement: Normal speech and movement present Results AMB Rapid Strep AMB Rapid Strep Negative Last Edit by CATHY Burns on 12/09/23 10:53 Assessment & Plan Assessment & Plan (1) Bilateral otitis media with effusion: Code(s): H65.93 - Unspecified nonsuppurative otitis media, bilateral Plan: Patient has done well previously on azithromycin. 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 Reviewed indications, use, possible side effects of this. She tends to get yeast infections following antibiotic use. Will send fluconazole should she need this following abx course. She may also continue to utilize Tylenol/Motrin as needed. (2) URI (upper respiratory infection): Code(s): J06.9 - Acute upper respiratory infection, unspecified Qualifiers: URI type: unspecified viral URI Qualified Code(s): J06.9 - Acute upper respiratory infection, unspecified Plan: She does have some ongoing upper respiratory symptoms. By going to start her on a short course of p.o. prednisone, which she has done well on previously for similar respiratory illnesses. We reviewed indications, use, possible side effects of med. We also reviewed ongoing conservative measures for symptomatic treatment, including rest, hydration, adequate vitamin/healthy food intake, tea with honey. COVID/flu/RSV swab obtained today and she will be notified of these results once these are available. Rapid strep in the office was negative. She will follow up as needed if she does not improve with time and treatment. She verbalizes understanding and agrees to plan. Orders: Orders SARS-CoV2/FLU/RSV Today J06.9 - Acute upper respiratory infection, unspecified AMB Rapid Strep Screen Today Z13.9 - Encounter for screening, unspecified Medications: New azithromycin For 250 mg dose pack: take 500 mg today (day 1), then 250 mg for 4 days (days 2-5) PO 6 tabs 0RF H65.93 - Unspecified nonsuppurative otitis media, bilateral prednisone 20 mg PO BID 10 tabs 0RF 5 days H65.93 - Unspecified nonsuppurative otitis media, bilateral, J06.9 - Acute upper respiratory infection, unspecified fluconazole may repeat second dose 72 hrs after first dose if symptoms persist 150 mg PO Q3D 2 tabs 0RF 2 doses B37.31 - Acute candidiasis of vulva and vagina Coding Level of Care Code Est Pt Level 3 (52421) Diagnoses Bilateral otitis media with effusion H65.93 Viral upper respiratory tract infection J06.9 URI type: unspecified viral URI
[2023-12-09 10:13] VITALS: BP 108/70; PULSE 78; TEMP 36.9; O2SAT 98
== END 2023-12-09 11:14 | disposition home or self-care (01) ==
PROVIDERS: PCP Internal Medicine; Visit Provider Nurse Practitioner Family
DX: H65.93 Unspecified nonsuppurative otitis media, bilateral (principal); J06.9 Acute upper respiratory infection, unspecified; J02.9 Acute pharyngitis, unspecified
CPT/HCPCS: 87880; 99213

== ENCOUNTER 2023-12-09 10:46 | Outpatient (REF) | payer OTHER, SELFPAY ==
[2023-12-09 16:49] LABS: Influenza A PCR NEGATIVE (Negative); Influenza B PCR NEGATIVE (Negative); Resp Syncy Virus RNA Qual PCR NEGATIVE (Negative); SARS COV2 PCR INHOUSE POSITIVE (Negative)
== END 2023-12-09 10:47 | disposition home or self-care (01) ==
LOC: HO.LAB 10:46
PROVIDERS: Visit Provider Nurse Practitioner Family
DX: Z11.52 Encounter for screening for COVID-19 (principal); Z20.822 Contact with and (suspected) exposure to COVID-19; J06.9 Acute upper respiratory infection, unspecified
CPT/HCPCS: 0241U

== ENCOUNTER 2023-12-17 16:18 | Outpatient (AMB) | payer OTHER, SELFPAY ==
--- NOTE | 2023-12-17 16:20 | MHC.OFFWIV ---
Intake Vital Signs 12/17/23 16:21 Height 6 ft 1 in BP 118/66 Blood Pressure Location Lt brachial Position Sitting Pulse 99 Pulse Source Pulse Oximeter Temp 98.2 F Temp Source Oral Pulse Oximetry (%) 97 Oxygen Delivery Method Room Air Intake Visit Reasons: EP Spider bite neck Intake Note: Pt is here today for a spider bite, pt states happened a wk ago. Pt states its pain. Patient Tobacco Use Status: Never used Tobacco Allergies latex [LATEX] Allergy (Mild, Verified 12/17/23 16:21) RASH Do you need a note to return to daycare/school/sports/work: No HPI HPI Comments History of Present Illness Details 28 y/o female patient who presents to walk in clinic with c/o Spider bite left sided neck x 6 days ago. Pt not sure if it was a spider but remembers feeling Sting' sharp pain. Few days later she noticed the area becoming tender and redness. She has been applying Neosporin daily. Denies fevers, chills, nausea or vomiting. [facility], [facility]1983 Medical History TMJ (dislocation of temporomandibular joint) TMJ (temporomandibular joint syndrome) Vitamin D deficiency Anxiety Abnormal thyroid biopsy Thyroid nodule Enlarged thyroid Acne comedone Acne Asthma Cough History of asthma Surgical History History of lobectomy of thyroid H/O wrist surgery History of bunionectomy History of knee surgery Family History Father Cancer of prostate Heart murmur FH: HTN (hypertension) Mother CVD (cardiovascular disease) History of heart attack Brother No problems noted. Sister No problems noted. 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 occupational exposures/hazards: No Cognitive needs: No Hearing needs: No Vision needs: No Female Reproductive History Menstrual Age of Menarche: 14 Review of Systems Const All systems reviewed & are unremarkable except as noted in HPI and below Physical Exam Vital Signs: Last Vital Signs Temp 98.2 F 12/17/23 16:21 Pulse 99 12/17/23 16:21 BP 118/66 12/17/23 16:21 Pulse Ox 97 12/17/23 16:21 Oxygen Delivery Method Room Air 12/17/23 16:21 Const General: comfortable and no acute distress Nutritional Appearance: overweight Orientation/consciousness: patient oriented x3 Neck Neck: Yes full ROM and Yes no lymphadenopathy Neck images: 1. Small area of redness, crusting and dry. No drainage. Tender to touch. Skin General skin exam: erythema (Small red patches on neck, healing well, tenderness to touch.) Neuro General: patient oriented x3 and gait normal Psych Speech and movement: Normal speech and movement present Attitude: cooperative Assessment & Plan Assessment & Plan (1) Spider bite wound: Code(s): T63.301A - Toxic effect of unspecified spider venom, accidental (unintentional), initial encounter Qualifiers: Encounter type: initial encounter Injury intent: undetermined intent Qualified Code(s): T63.304A - Toxic effect of unspecified spider venom, undetermined, initial encounter Plan: - Take medication as directed. - May continue to apply Neosporin Medications: New cephalexin 500 mg PO BID 5 days 10 caps 0RF T63.301A - Toxic effect of unspecified spider venom, accidental (unintentional), initial encounter Coding Level of Care Code Est Pt Level 3 (87355) Diagnoses Spider bite wound, undetermined intent, initial encounter T63.304A Encounter type: initial encounter Injury intent: undetermined intent Time Spent (min) 15
[2023-12-17 16:21] VITALS: BP 118/66; PULSE 99; TEMP 36.8; O2SAT 97
== END 2023-12-17 16:38 | disposition home or self-care (01) ==
PROVIDERS: PCP Internal Medicine; Visit Provider Nurse Practitioner Family
DX: T63.304A Toxic effect of unspecified spider venom, undetermined, initial encounter (principal)
CPT/HCPCS: 99213

== ENCOUNTER 2023-12-21 06:27 | Outpatient (REF) | payer OTHER, SELFPAY ==
[2023-12-21 08:07] LABS: Thyroid Stimulating Hormone 2.86 uIU/mL (0.32-4.0)
[2023-12-22 18:29] LABS: Prolactin 33.6 ng/mL
[2023-12-26 14:23] LABS: Testosterone, Free 3.1 pg/mL (0.1-6.4); Testosterone, Total 30 ng/dL (2-45)
== END 2023-12-21 06:28 | disposition home or self-care (01) ==
LOC: HO.LAB 06:27
PROVIDERS: PCP Internal Medicine; Visit Provider Advanced Practice Midwife
DX: N92.6 Irregular menstruation, unspecified (principal); L70.9 Acne, unspecified
CPT/HCPCS: 36415; 83498; 84146; 84402; 84403; 84443

== ENCOUNTER 2024-01-06 08:14 | Outpatient (AMB) | payer OTHER, SELFPAY ==
[2024-01-06 08:21] VITALS: BP 100/68; BMI 27.6
--- NOTE | 2024-01-06 08:21 | A.OFFVIS_ITS ---
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 She had a history of irregular cycles, and what she described as horrible acne. She has been off OCPs for 1 cycle, she reports that cycle was light and short. She denies any spontaneous nipple discharge, or headaches. Prolactin level elevated at 33.6, remainder of labs were normal. [facility] Medical History TMJ (dislocation of temporomandibular joint) TMJ (temporomandibular joint syndrome) Vitamin D deficiency Anxiety Abnormal thyroid biopsy Thyroid nodule Enlarged thyroid Acne comedone Acne Asthma Cough History of asthma Surgical History History of lobectomy of thyroid H/O wrist surgery History of bunionectomy History of knee surgery Family History Father Cancer of prostate Heart murmur FH: HTN (hypertension) Mother CVD (cardiovascular disease) History of heart attack Brother No problems noted. Sister No problems noted. 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 occupational exposures/hazards: No Cognitive needs: No Hearing needs: No Vision needs: No Female Reproductive History Menstrual Age of Menarche: 14 Duration of menses: 3-5 days Date of last menstrual period: 12/29/23 control method: pills Review of Systems Const All systems reviewed & are unremarkable except as noted in HPI and below Endo Reports no additional complaints Physical Exam Vital Signs: Last Vital Signs BP 100/68 01/06/24 08:21 BMI result Body Mass Index 27.6 Const General: cooperative, healthy appearing and no acute distress Psych Appearance: well kempt Attitude: cooperative Thought process: Normal thought process present Assessment & Plan Assessment & Plan (1) Encounter to discuss test results: Code(s): Z71.2 - Person consulting for explanation of examination or test findings (2) Elevated prolactin level: Code(s): R79.89 - Other specified abnormal findings of blood chemistry Plan Discussed: Discontinue any breast stimulation. Repeat prolactin level fasting in 4 weeks. Okay to follow up with tele visit, phone call. She prefers to monitor her cycles currently verses starting any other control. All of her questions and concerns were addressed to the best of my ability and shared decision making. She is agreeable to the plan of care. This note is constructed using voice recognition software. While every effort has been made to ensure accuracy, channeler errors may have been included. Coding Level of Care Code Est Pt Level 3 (58159) Diagnoses Encounter to discuss test results Z71.2 Elevated prolactin level R79.89
== END 2024-01-06 08:35 | disposition home or self-care (01) ==
PROVIDERS: PCP Internal Medicine; Visit Provider Advanced Practice Midwife
DX: Z71.2 Person consulting for explanation of examination or test findings (principal); R79.89 Other specified abnormal findings of blood chemistry
CPT/HCPCS: 99213

== ENCOUNTER → 2024-01-06 08:14 | Outpatient (BNVA) | payer OTHER, SELFPAY | PROVIDERS: PCP Internal Medicine; Visit Provider Advanced Practice Midwife ==

== ENCOUNTER 2024-01-20 13:41 | Outpatient (REF) | payer OTHER, SELFPAY ==
[2024-01-20 13:49] LABS: MANUAL DIFF FLAG NO
[2024-01-20 14:52] LABS: Basophils Absolute Auto 0.1 X10*3/uL (0.0-0.2); Basophils Percent Auto 0.9 % (0-2); Eosinophils Absolute Auto 0.4 X10*3/uL (0.0-0.4); Hematocrit 40.3 % (37.0-47.0); Hemoglobin 13.3 g/dl (12.0-16.0); Imm Gran Abs Auto 0.01 X10*3/uL (0.00-0.03); Imm Gran Pct Auto 0.1 % (0.0-0.4); Lymphocytes Percent Auto 43.3 % (20-40); Mean Corpuscular Hemoglobin 28.3 pg (27.0-33.0); Mean Corpuscular Volume 85.7 fL (80.0-98.0); Mean Platelet Volume 10.6 fL (9.4-12.3); Monocytes Absolute Auto 0.6 X10*3/uL (0.1-1.2); Monocytes Percent Auto 9.1 % (2-11); Neutrophils Absolute Auto 2.9 x10*3/uL (2.0-8.3); Neutrophils Percent Auto 41.6 % (45-73); Platelet Count 226 X10*3/uL (160-400); Red Cell Distribution Width 13.1 % (11.0-16.0)
[2024-01-20 15:44] LABS: Alanine Aminotransferase 14 U/L (0-31); Albumin Level 4.3 g/dL (3.5-5.0); Alkaline Phosphatase 36 U/L (39-117); Anion Gap 8 (12-20); Aspartate Amino Transferase 15 U/L (5-31); Bilirubin Total 0.8 mg/dL (0.0-1.0); Blood Urea Nitrogen 9 mg/dL (9-16); Calcium 9.5 mg/dL (8.4-10.2); Carbon Dioxide 27 mmol/L (22-29); Chloride 109 mmol/L (96-108); Cholesterol 183 mg/dL (<200); Estimated Glomerular Filt Rate > 60; Glucose Fasting 89 mg/dL (60-99); HDL Cholesterol 77 mg/dL (>40); LDL Cholesterol Calculated 96 mg/dL (<100); Sodium 140 mmol/L (135-145); Total Protein 7.4 g/dL (6.5-8.0); Triglycerides 50 mg/dL (<150)
== END 2024-01-20 13:42 | disposition home or self-care (01) ==
LOC: HO.LAB 13:41
PROVIDERS: Visit Provider Internal Medicine
DX: Z00.00 Encounter for general adult medical examination without abnormal findings (principal); Z13.6 Encounter for screening for cardiovascular disorders
CPT/HCPCS: 36415; 80053; 80061; 85025

== ENCOUNTER → 2024-01-21 11:48 | Outpatient (BNVA) | payer OTHER, SELFPAY | PROVIDERS: PCP Internal Medicine; Visit Provider Advanced Practice Midwife ==

== ENCOUNTER 2024-01-24 13:41 | Outpatient (REF) | payer OTHER, SELFPAY ==
[2024-01-25 07:29] LABS: Prolactin 12.3 ng/mL
== END 2024-01-24 13:42 | disposition home or self-care (01) ==
LOC: HO.LAB 13:41
PROVIDERS: PCP Internal Medicine; Visit Provider Advanced Practice Midwife
DX: R79.89 Other specified abnormal findings of blood chemistry (principal)
CPT/HCPCS: 36415; 84146

== ENCOUNTER 2024-01-25 13:10 | Outpatient (AMB) | payer OTHER, SELFPAY ==
--- NOTE | 2024-01-25 13:11 | A.OFFVIS_ITS ---
Intake Intake Visit Reasons: TV Lab results Intake Note: cell # [phone] Certified Medical Coding Specialist: Certified Medical Coding Specialist Present Allergies latex [LATEX] Allergy (Mild, Verified 01/21/24 11:48) RASH Is last menstrual period known: Yes Last menstrual period: 12/25/23 HPI HPI Comments History of Present Illness Details [facility] visit 13:16-13:25. Phone call due to Covid 19 Pandemic. I spent 9 minutes speaking with the patient on the phone plus an additional 5 minutes reviewing the chart and 5 minutes updating the medical record for a total of 19minutes. Patient presents via phone to discuss: Lab results, follow up for elevated prolactin level. She reports some external irritation itching and a white thicker discharge not clumpy inconsistency in a light odor which is more like sour dough. She no longer has any dyspareunia. No other concerns today. [facility] Medical History TMJ (dislocation of temporomandibular joint) TMJ (temporomandibular joint syndrome) Vitamin D deficiency Anxiety Abnormal thyroid biopsy Thyroid nodule Enlarged thyroid Acne comedone Acne Asthma Cough History of asthma Surgical History History of lobectomy of thyroid H/O wrist surgery History of bunionectomy History of knee surgery Family History Father Cancer of prostate Heart murmur FH: HTN (hypertension) Mother CVD (cardiovascular disease) History of heart attack Brother No problems noted. Sister No problems noted. 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 occupational exposures/hazards: No Cognitive needs: No Hearing needs: No Vision needs: No Female Reproductive History Menstrual Age of Menarche: 14 Date of last menstrual period: 12/25/23 Review of Systems Const All systems reviewed & are unremarkable except as noted in HPI and below Endo Reports no additional complaints Physical Exam Const General: cooperative, healthy appearing and no acute distress Psych Appearance: well kempt Attitude: cooperative Thought process: Normal thought process present Assessment & Plan Assessment & Plan (1) Vaginal itching: Code(s): N89.8 - Other specified noninflammatory disorders of vagina (2) Encounter to discuss test results: Code(s): Z71.2 - Person consulting for explanation of examination or test findings (3) Elevated prolactin level: Code(s): R79.89 - Other specified abnormal findings of blood chemistry Plan Discussed: Prolactin level is back to normal. Continue with control, follow up in May for annual exam. Rx for 1 dose of Diflucan sent in if no improvements by Wednesday to call in or portal in her concerns. All of her questions and concerns were addressed to the best of my ability and shared decision making. She is agreeable to the plan of care. This note is constructed using voice recognition software. While every effort has been made to ensure accuracy, saddle lining stitcher errors may have been included. Medications: New fluconazole 150 mg PO ONCE 1 day 1 tab 0RF personal Telehealth Telehealth Location of provider rendering services: practice address Location of patient: other Patient Identification confirmed using: Name, : Yes Telehealth method: video Patient verbally consented to treatment: Yes Patient verbally consented to billing insurance company: Yes Patient informed of any privacy concerns related to visit: Yes Coding Level of Care Code Est Pt Level 3 (33022) Diagnoses Vaginal itching N89.8 Encounter to discuss test results Z71.2 Elevated prolactin level R7.89
== END 2024-01-25 14:06 | disposition home or self-care (01) ==
LOC: HO.HWS 13:10
PROVIDERS: PCP Internal Medicine; Visit Provider Advanced Practice Midwife
DX: N89.8 Other specified noninflammatory disorders of vagina (principal); Z71.2 Person consulting for explanation of examination or test findings; R79.89 Other specified abnormal findings of blood chemistry
CPT/HCPCS: 99213

== ENCOUNTER → 2024-01-25 13:10 | Outpatient (BNVA) | payer OTHER, SELFPAY | PROVIDERS: PCP Internal Medicine; Visit Provider Advanced Practice Midwife ==

== ENCOUNTER 2024-01-31 08:26 | Outpatient (AMB) | payer OTHER, SELFPAY ==
[2024-01-31 09:04] VITALS: BP 118/70; PULSE 72; O2SAT 98; BMI 27.7
--- NOTE | 2024-01-31 09:04 | MHC.PC.OV ---
Vital Signs 01/31/24 09:04 Height 6 ft 1 in Weight 210 lb BMI 27.7 BP 118/70 Blood Pressure Location Rt brachial Position Sitting Pulse 72 Pulse Source Pulse Oximeter Pulse Oximetry (%) 98 Oxygen Delivery Method Room Air Intake Visit Reasons: Annual PE Intake Note: Pt is here today for PE. Allergies latex [LATEX] Allergy (Mild, Verified 01/31/24 09:06) RASH Medication List - Last Reconciled 01/31/24 by Liz Magallanes MD albuterol sulfate 90 mcg/actuation 2 puffs inhalation Q6H PRN cyclobenzaprine 10 mg PO BEDTIME desog-e.estradiol/e.estradiol 0.15-0.02 mgx21 /0.01 mg x 5 1 tab PO DAILY 28 days diclofenac potassium 50 mg PO BID fluconazole 150 mg PO ONCE 1 day fluticasone propion-salmeterol (Advair Diskus) inhalation Tobacco use date assessed: 01/31/24 Dental Screening Dental Screen Date: 01/31/24 Did you have a dental visit in the last 12 months?: Yes Did you have a dental problem in the last 6 months where you did not have access to dental care?: No Was dental information given to patient?: Patient has dentist HPI Annual PE HPI Details Pt presents for PE. [facility] Medical History (Updated 01/31/24 @ 09:58 by Liz Magallanes MD) TMJ (temporomandibular joint syndrome) Vitamin D deficiency Anxiety Thyroid nodule Acne comedone Acne Asthma History of asthma Surgical History History of lobectomy of thyroid H/O wrist surgery History of bunionectomy History of knee surgery Family History Father Cancer of prostate Heart murmur FH: HTN (hypertension) Mother CVD (cardiovascular disease) History of heart attack Brother No problems noted. Sister No problems noted. 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 occupational exposures/hazards: No Cognitive needs: No Hearing needs: No Vision needs: No Female Reproductive History Menstrual Age of Menarche: 14 Questionnaire Thrive Questionnaire Date Thrive assessed: 01/18/23 I am a: Patient What is your living situation today?: I have a steady place to live Within the past 12 months, did the food you bought not last and you didn't have the money to get more?: Never true Within the past 12 months, did you worry whether your food would run out before you got money to buy more?: Never true Please select the resources that you would like help with: None THRIVE Score: 0 AUDIT C Alcohol Use Questionnaire (AUDIT-C) 1. How often do you have a drink containing alcohol?: Never 3. How often do you have six or more drinks on one occasion?: Never Total Score: 0 PETERSON-7 AMB Questionnaire PETERSON-7 Date PETERSON - 7 assessed: 01/18/23 Feeling nervous, anxious, or on edge: 0 = Not at all Not being able to stop or control worryin = Not at all Worrying too much about different things: 0 = Not at all Trouble relaxin = Not at all Being so restless that it is hard to sit still: 0 = Not at all Becoming easily annoyed or irritable: 0 = Not at all Feeling afraid as if something awful might happen: 0 = Not at all Total PETERSON-7 score (0-4 normal; 5-9 mild; 10-14 moderate; 15-21 severe): 0 Source: Developed by Drs. Edilberto Stone, Josefa Alvarez, Godfrey Elena and colleagues, with an educational kevin from [employer]. Review of Systems Const All systems reviewed & are unremarkable except as noted in HPI and below Reports no additional complaints Eyes Reports no additional complaints ENT Reports no additional complaints Card Reports no additional complaints Resp Reports no additional complaints GI Reports no additional complaints Reports no additional complaints Musc Reports no additional complaints Physical exam (Primary Care) Vital Signs: Last Vital Signs Pulse 72 01/31/24 09:04 BP 118/70 01/31/24 09:04 Pulse Ox 98 01/31/24 09:04 Oxygen Delivery Method Room Air 01/31/24 09:04 BMI result Body Mass Index 27.7 Tobacco/Smoking Status: Tobacco use Status Tobacco use date assessed 01/31/24 01/31/24 09:09 Patient Tobacco Use Status Never used Tobacco 01/31/24 09:09 e-Cigarette/Vaping Use Never Used 01/31/24 09:09 Thrive Assessment: Date of Thrive Assessment Date Thrive assessed 01/18/23 01/31/24 09:09 Const General: no acute distress HENMT Head: Yes normal to inspection Ears: hearing grossly normal bilaterally Face and sinus: Yes normal facial exam Mouth: Normal oral and palatal mucosa present Throat: Yes posterior oropharynx normal Eyes General: appearance normal, both eyes and all related structures Neck Neck: Yes no lymphadenopathy and Yes supple Resp Effort & Inspection: normal respiratory effort Auscultation: clear to auscultation bilaterally Cardio Rhythm: regular rhythm Heart sounds: S1 normal heart sound present and S2 normal heart sound present GI Inspection: Yes normal to inspection Palpation (GI): Soft to palpation Percussion: Yes normal to percussion Auscultation: normal bowel sounds Assessment and Plan Assessment & Plan (1) Annual physical exam: Code(s): Z00.00 - Encounter for general adult medical examination without abnormal findings Plan: Well-balanced diet regular physical activity discussed with the patient. (2) Encounter for annual routine gynecological examination: Comment: clinical research tech Lisa Florez Code(s): Z01.419 - Encounter for gynecological examination (general) (routine) without abnormal findings Plan: Up-to-date with Pap and pelvic exam by clinical research tech (3) Asthma: Comment: mild Albuterol prn Code(s): J45.909 - Unspecified asthma, uncomplicated Plan: Continue albuterol p.r.n. (4) TMJ (temporomandibular joint syndrome): Comment: on Voltaren prn Code(s): M26.609 - Unspecified temporomandibular joint disorder, unspecified side Plan: Diclofenac was refilled. patient was made aware that taking diclofenac for prolonged time can lead to renal and hepatic injury and increases a risk for GI bleed Medications: Refilled diclofenac potassium 50 mg PO BID 60 tabs 5RF Coding Level of Care Code Est Pt Prev Care 18-39y(29317) Diagnoses Annual physical exam Z00.00 Encounter for annual routine gynecological examination Z01.419 Asthma J45.909 TMJ (temporomandibular joint syndrome) M26.571
== END 2024-01-31 09:38 | disposition home or self-care (01) ==
PROVIDERS: PCP Internal Medicine; Visit Provider Internal Medicine
DX: Z00.00 Encounter for general adult medical examination without abnormal findings (principal); Z01.419 Encounter for gynecological examination (general) (routine) without abnormal findings; J45.909 Unspecified asthma, uncomplicated; M26.609 Unspecified temporomandibular joint disorder, unspecified side
CPT/HCPCS: 99395

== ENCOUNTER 2024-05-26 08:16 | Outpatient (AMB) | payer OTHER, SELFPAY ==
--- NOTE | 2024-05-26 08:19 | MHC.OFFWIV ---
Intake Vital Signs 05/26/24 08:20 Height 6 ft 1 in Weight 222 lb BMI 29.3 BP 104/70 Blood Pressure Location Rt brachial Position Sitting Pulse 72 Pulse Source Pulse Oximeter Pulse Oximetry (%) 99 Oxygen Delivery Method Room Air Intake Visit Reasons: EP- RT eye is swollen Intake Note: Patient here for right eye swelling, she states it started yesterday with it being itchy. no discharge but it keeps watering. Patient Tobacco Use Status: Never used Tobacco Allergies latex [LATEX] Allergy (Mild, Verified 05/26/24 08:22) RASH Medication List - Last Reconciled 05/26/24 by Shelby Vance MD albuterol sulfate 90 mcg/actuation 2 puffs inhalation Q6H PRN desog-e.estradiol/e.estradiol 0.15-0.02 mgx21 /0.01 mg x 5 1 tab PO DAILY 28 days Do you need a note to return to daycare/school/sports/work: No HPI EP- RT eye is swollen HPI Details Patient is 28-year-old female came in today to be evaluated for swelling right eye and discharge Patient says that yesterday she felt itchy, which got worse at night and she did rub her eye This morning she woke up with the swelling around the eye and also crusty discharge Vision is intact, there is no photophobia there is no pain There is no fever no chills no nausea no vomiting Patient has developed conjunctivitis, also seems like an allergic reaction because surrounding tissue is swollen Since it happened so acutely I doubt that it is cellulitis. I am treating her with local eyedrops And prednisone orally for 3 days Patient was encouraged to see either her eye doctor or PCP next week. [facility] Medical History TMJ (temporomandibular joint syndrome) Vitamin D deficiency Anxiety Thyroid nodule Acne comedone Acne Asthma History of asthma Surgical History History of lobectomy of thyroid H/O wrist surgery History of bunionectomy History of knee surgery Family History Father Cancer of prostate Heart murmur FH: HTN (hypertension) Mother CVD (cardiovascular disease) History of heart attack Brother No problems noted. Sister No problems noted. 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 Swelling without any pain 2. Conjunctiva injected cloudy discharge at the corner, pupils reactive to light, extraocular movement intact, palpation causes no pain there is no photophobia Resp Effort & Inspection: normal respiratory effort and able to speak in complete sentences Neuro General: patient oriented x3 Psych Mental Status: mental status grossly normal Assessment & Plan Assessment & Plan (1) Acute conjunctivitis, right eye: Code(s): H10.31 - Unspecified acute conjunctivitis, right eye Qualifiers: Acute conjunctivitis type: unspecified Qualified Code(s): H10.31 - Unspecified acute conjunctivitis, right eye (2) Allergic reaction: Code(s): T78.40XA - Allergy, unspecified, initial encounter Qualifiers: Encounter type: initial encounter Qualified Code(s): T78.40XA - Allergy, unspecified, initial encounter Plan Patient is 28-year-old female came in today to be evaluated for swelling right eye and discharge Patient says that yesterday she felt itchy, which got worse at night and she did rub her eye This morning she woke up with the swelling around the eye and also crusty discharge Vision is intact, there is no photophobia there is no pain There is no fever no chills no nausea no vomiting Patient has developed conjunctivitis, also seems like an allergic reaction because surrounding tissue is swollen Since it happened so acutely I doubt that it is cellulitis. I am treating her with local eyedrops And prednisone orally for 3 days Patient was encouraged to see either her eye doctor or PCP next week. Medications: New polymyxin B sulf-trimethoprim 10,000 unit- 1 mg/mL while awake; do not exceed 6 doses in 24 hours 1 drp ophthalmic (eye) QID 10 mL 0RF 5 days prednisone 20 mg PO DAILY 3 tabs 0RF 3 days Coding Level of Care Code Est Pt Level 3 (28174) Diagnoses Acute conjunctivitis of right eye, unspecified acute conjunctivitis type H10.31 Acute conjunctivitis type: unspecified Allergic reaction, initial encounter T78.40XA Encounter type: initial encounter
[2024-05-26 08:20] VITALS: BP 104/70; PULSE 72; O2SAT 99; BMI 29.3
== END 2024-05-26 09:05 | disposition home or self-care (01) ==
PROVIDERS: PCP Internal Medicine; Visit Provider Internal Medicine
DX: H10.31 Unspecified acute conjunctivitis, right eye (principal); T78.40XA Allergy, unspecified, initial encounter
CPT/HCPCS: 99213

== ENCOUNTER 2024-05-30 13:38 | Outpatient (REF) | payer OTHER, SELFPAY ==
[2024-05-31 03:45] LABS: CT PCR NOT DETECTED (Not Detect.); NG PCR NOT DETECTED (Not Detect.)
[2024-05-31 10:37] LABS: Bacterial Vaginosis PCR POSITIVE (Negative); Candida Group PCR DETECTED (Not Detect); Candida glab krusei PCR NOT DETECTED (Not Detect); Trichomonas vaginalis PCR NOT DETECTED (Not Detect)
[2024-06-02 07:34] LABS: HPV mRNA E6/E7 Not Detected (Not Detected)
== END 2024-05-30 13:39 | disposition home or self-care (01) ==
LOC: HO.LAB 13:38
PROVIDERS: PCP Internal Medicine; Visit Provider Advanced Practice Midwife
DX: Z01.419 Encounter for gynecological examination (general) (routine) without abnormal findings (principal); Z11.51 Encounter for screening for human papillomavirus (HPV); N89.8 Other specified noninflammatory disorders of vagina
CPT/HCPCS: 0352U; 36415; 87491; 87591; 87624; 88175

== ENCOUNTER 2024-05-30 13:38 | Outpatient (AMB) | payer OTHER, SELFPAY ==
[2024-05-30 14:09] VITALS: BP 112/62; BMI 29.6
--- NOTE | 2024-05-30 14:09 | A.OFFVIS_ITS ---
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 Required: No Information Interpreted: clinical only Extension Forester: Extension Forester Present Allergies latex [LATEX] Allergy (Mild, Verified 05/30/24 14:09) RASH Medication List - Last Reconciled 05/30/24 by Estelita Carter CNM albuterol sulfate 90 mcg/actuation 2 puffs inhalation Q6H PRN desog-e.estradiol/e.estradiol 0.15-0.02 mgx21 /0.01 mg x 5 1 tab PO DAILY 28 days polymyxin B sulf-trimethoprim 10,000 unit- 1 mg/mL 1 drp ophthalmic (eye) QID 5 days Is last menstrual period known: Yes Last menstrual period: 05/25/24 Do you need a note to return to daycare/school/sports/work: No HPI HPI 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 She sometimes takes flights for 4-5 hours. She has no problems taking the pills accept that she ran out. She started her last period last which was 6 days ago. She denied intercourse since the start of that. But then at the very end of the visit when I remarked on her cervix being slightly reddened she asked if intercourse could cause that and she admitted that she had had sex this morning though she had used withdrawal. She does not like plan B in will not take it. Plan had already been made for starting the control pills with 2 pills today and 2 pills tomorrow to catch up as if it was a Wednesday start and to use backup for the next 2 weeks. Reiterated this plan however the patient does not want to start Plan B. Suggested patient call for refills before she goes away in sure she has enough pills for some reason her prescription had only been for a month at a time as well. Prescription sent for 3 months at a time with 4 refills to [facility] pharmacy on [facility]. [facility] Medical History TMJ (temporomandibular joint syndrome) Vitamin D deficiency Anxiety Thyroid nodule Acne comedone Acne Asthma History of asthma Surgical History History of lobectomy of thyroid H/O wrist surgery History of bunionectomy History of knee surgery Family History Father Cancer of prostate Heart murmur FH: HTN (hypertension) Mother CVD (cardiovascular disease) History of heart attack Brother No problems noted. Sister No problems noted. 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 occupational exposures/hazards: No Cognitive needs: No Hearing needs: No Vision needs: No Female Reproductive History Menstrual Age of Menarche: 14 Duration of menses: 3-5 days Date of last menstrual period: 05/25/24 control method: pills (She had run out while she was away.) Total pregnancies: 0 Date of last pap smear: 04/29/23 (neg,2019 WNL) History of abnormal pap smear: No Physical Exam Vital Signs: Last Vital Signs BP 112/62 05/30/24 14:09 BMI result Body Mass Index 29.6 Const General: healthy appearing, comfortable, no acute distress, well developed and alert Nutritional Appearance: average body habitus Orientation/consciousness: patient oriented x3 Limitations: no limitations HEENT Head: Yes normocephalic Chest Chest palpation & inspection: normal inspection of the chest Breast/axilla inspection: normal inspection of the breasts and normal inspection of the axillae Breast/axilla palpation: normal palpation of the breasts and normal palpation of the axillae Resp Effort & Inspection: normal respiratory effort GI Inspection: Yes normal to inspection, No Abdominal wall edema and No distended Palpation (GI): Soft to palpation and nontender Other: Vulva slightly pink vagina pink cervix slightly reddened normal appearing mucus. Cervix long close thick mobile nontender uterus nontender difficult palpate completely secondary to habitus. Adnexa nontender good tone with Kegel. General: Yes bladder normal to palpation External Female Exam: normal external appearance and normal appearance of the urethra Speculum Exam - Vagina: normal appearance of the vagina, normal palpation and normal vaginal discharge Speculum Exam - Cervix: normal appearance of the cervix, normal palpation and nontender Bimanual exam- vagina & uterus: normal bimanual exam, normal palpation, uterine size normal, bladder normal to palpation, consistency normal, normal palpation, uterine mobility normal, uterine shape normal, No Cervical tenderness present, non-tender and no cervical motion tenderness Bimanual Exam- Adnexa, other: normal adnexae, no masses, normal and No adnexal tenderness Neuro General: patient oriented x3 Results Reviewed Results Reviewed: Name: Meghan Devi Age/Sex: 27/F Attending: Lisa Florez CNM : 1995 Submitted by: Lisa Florez CNM Copies to: Liz Magallanes MD MR #: [id number] Status: DEP REF Collected: 05/12/23 Location: [facility] Received: 05/13/23 Interpretation Satisfactory for evaluation. Negative for intraepithelial lesion or malignancy. Clinical Information LMP: 04/19/23 Previous PAP test: 2020, WNL Material Received ThinPrep-Cervical Copies To Liz Magallanes MD [facility] [place] [address] Lisa Florez CNM [address] [place] [address] [place] [address] Electronically Signed By: CARLI Bey (ASCP) 06/03/23 3277 The Pap Test is a screening procedure with the inherent possibility of both false negative and false positive results. Results should be interpreted in the context of historic and current clinical findings. Reliability of the Pap Test is enhanced by performing the test on a regular repetitive basis. Patient: Meghan Devi Age/Sex: 27/F [facility]#: [id number] MR#: [id number] Page 1 of 1 Assessment & Plan Assessment & Plan (1) Encounter for annual routine gynecological examination: Comment: medical office manager Lisa Florez Code(s): Z01.419 - Encounter for gynecological examination (general) (routine) without abnormal findings Category: Medical (2) control counseling: Code(s): Z30.09 - Encounter for other general counseling and advice on contraception Category: Medical (3) Encounter for screening examination for sexually transmitted disease: Code(s): Z11.3 - Encounter for screening for infections with a predominantly sexual mode of transmission Category: Medical Plan 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 She sometimes takes flights for 4-5 hours. She has no problems taking the pills accept that she ran out. She started her last period last wh ich was 6 days ago. She denied intercourse since the start of that. But then at the very end of the visit when I remarked on her cervix being slightly reddened she asked if intercourse could cause that and she admitted that she had had sex this morning though she had used withdrawal. She does not like plan B in will not take it. Plan had already been made for starting the control pills with 2 pills today and 2 pills tomorrow to catch up as if it was a Wednesday start and to use backup for the next 2 weeks. Reiterated this plan however the patient does not want to start Plan B. Suggested patient call for refills before she goes away in sure she has enough pills for some reason her prescription had only been for a month at a time as well. Prescription sent for 3 months at a time with 4 refills to her [facility] pharmacy on [facility]. I strongly recommend she keep her legs moving when she is flying especially being on the control pills and suggested she consider quad strengthening exercises for her knees has both of her knees bother her and she has had 2 knee surgeries for ACL and meniscus tears on both.. Patient called back half an hour after leaving saying she has changed her mind and she wants Plan B. I will send the prescription to her pharmacy. Medications: New levonorgestrel (Plan B One-Step) 1.5 mg PO ONCE 1 tab 4RF Changed From desog-e.estradiol/e.estradiol 0.15-0.02 mgx21 /0.01 mg x 5 1 tab PO DAILY 28 days 84 tabs 4RF To desog-e.estradiol/e.estradiol 0.15-0.02 mgx21 /0.01 mg x 5 1 tab PO DAILY 84 days 84 tabs 4RF Coding Level of Care Code Est Pt Prev Care 18-39y(08607) Diagnoses Encounter for annual routine gynecological examination Z01.419 control counseling Z30.09 Encounter for screening examination for sexually transmitted disease Z11.3
== END 2024-05-30 15:08 | disposition home or self-care (01) ==
LOC: HO.HWSM 13:38
PROVIDERS: PCP Internal Medicine; Visit Provider Advanced Practice Midwife
DX: Z01.419 Encounter for gynecological examination (general) (routine) without abnormal findings (principal); Z30.09 Encounter for other general counseling and advice on contraception; Z11.3 Encounter for screening for infections with a predominantly sexual mode of transmission
CPT/HCPCS: 99395

== ENCOUNTER 2024-06-29 08:03 | Outpatient (AMB) | payer OTHER, SELFPAY ==
--- NOTE | 2024-06-29 08:34 | MHC.OFFWIV ---
Intake Vital Signs 06/29/24 08:35 Height 6 ft 1 in Weight 222 lb BMI 29.3 BP 108/70 Blood Pressure Location Lt brachial Position Sitting Pulse 75 Pulse Source Pulse Oximeter Temp 98.1 F Temp Source Oral Pulse Oximetry (%) 98 Oxygen Delivery Method Room Air Intake Visit Reasons: EP Rash all over body Intake Note: pt c/o ?UTI, frequency,urgency, burning, lower abdominal pain. Started 5 days ago Patient Tobacco Use Status: Never used Tobacco Allergies latex [LATEX] Allergy (Mild, Verified 06/29/24 08:34) RASH Do you need a note to return to daycare/school/sports/work: No HPI EP Rash all over body HPI Details This note is constructed using voice recognition software. While every effort has been made to ensure accuracy, oracle database analyst errors may have been included. The patient is a 28 year old female who presents to the clinic today with dysuria for the past 5 days. She reports increased frequency, urgency, burning on urination. She denies fever, chills, back pain, and change in color or odor of urine. She recently was treated. Vaginosis and the symptoms of that have completely resolve per her accord. She has no vaginal discharge. [facility] Medical History TMJ (temporomandibular joint syndrome) Vitamin D deficiency Anxiety Thyroid nodule Acne comedone Acne Asthma History of asthma Surgical History History of lobectomy of thyroid H/O wrist surgery History of bunionectomy History of knee surgery Family History Father Cancer of prostate Heart murmur FH: HTN (hypertension) Mother CVD (cardiovascular disease) History of heart attack Brother No problems noted. Sister No problems noted. 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 occupational exposures/hazards: No Cognitive needs: No Hearing needs: No Vision needs: No Female Reproductive History Menstrual Age of Menarche: 14 Review of Systems Const All systems reviewed & are unremarkable except as noted in HPI and below Physical Exam Vital Signs: Last Vital Signs Temp 98.1 F 06/29/24 08:35 Pulse 75 06/29/24 08:35 BP 108/70 06/29/24 08:35 Pulse Ox 98 06/29/24 08:35 Oxygen Delivery Method Room Air 06/29/24 08:35 BMI result Body Mass Index 29.3 Const General: cooperative, healthy appearing, comfortable, no acute distress and alert Orientation/consciousness: patient oriented x3 Limitations: no limitations Resp Effort & Inspection: normal respiratory effort and able to speak in complete sentences General: Yes no CVA tenderness Back/Spine/Pelvis Back: no CVA tenderness Skin General skin exam: no rashes or lesions noted, elasticity normal and turgor normal Neuro General: patient oriented x3 Psych Appearance: grossly normal Mental Status: mental status grossly normal Speech and movement: Normal speech and movement present Affect: normal affect Results AMB Urinalysis, Automated UA Leukoctes 500 Krissy/uL Last Edit by Abraham Alfonso CMA on 06/29/24 08:47 UA Nitrite Negative Last Edit by Abraham Alfonso CMA on 06/29/24 08:47 UA Urobilinogen 0.2 mg/dL Last Edit by Abraham Alfonso CMA on 06/29/24 08:47 UA Protein 0 mg/dL Last Edit by Abraham Alfonso CMA on 06/29/24 08:47 UA pH 6.5 Last Edit by Abraham Alfonso CMA on 06/29/24 08:47 UA Blood 10 Bao/uL Last Edit by Abraham Alfonso CMA on 06/29/24 08:47 UA Specific Pendergrass 1.015 Last Edit by Abraham Alfonso CMA on 06/29/24 08:47 UA Ketone Negative Last Edit by Abraham Alfonso CMA on 06/29/24 08:47 UA Bilirubin 0 mg/dL Last Edit by Abraham Alfonso CMA on 06/29/24 08:47 UA Glucose 0 mg/dL Last Edit by Abraham Alfonso CMA on 06/29/24 08:47 Results Reviewed Results Reviewed: Laboratory Last Values Urine pH (Auto) 6.5 06/29/24 08:45 Specific Pendergrass (Auto) 1.015 06/29/24 08:45 Urine Protein (Auto) 0 mg/dL 06/29/24 08:45 Glucose (UA)(Auto) 0 mg/dL 06/29/24 08:45 Urine Ketones (Auto) Negative 06/29/24 08:45 Urine Blood (Auto) 10 Bao/uL 06/29/24 08:45 Urine Nitrite (Auto) Negative 06/29/24 08:45 Urine Bilirubin (Auto) 0 mg/dL 06/29/24 08:45 Urine Urobilinogen (Auto) 0.2 mg/dL 06/29/24 08:45 Leukocyte Esterase (Auto) 500 Krissy/uL 06/29/24 08:45 Assessment & Plan Assessment & Plan (1) UTI (urinary tract infection): Code(s): N39.0 - Urinary tract infection, site not specified Qualifiers: Hematuria presence: without hematuria Urinary tract infection type: acute cystitis Qualified Code(s): N30.00 - Acute cystitis without hematuria Plan: Antimicrobial sent to requested pharmacy. Advised patient to take medication until complete. Advised increased hydration to help flush the system through. Advised patient to follow up with worsening or failure to resolve. Plan See above for full details and plan. Orders: Orders AMB Urinalysis Automated Today Madyson Lang PA-C Z13.9 - Encounter for screening, unspecified Medications: New nitrofurantoin monohyd/m-cryst 100 mg must administer with a meal/food 100 mg PO Q12H 5 days 10 caps 0RF Brenda Connolly NP Coding Level of Care Code Est Pt Level 3 (40743) Diagnoses Acute cystitis without hematuria N30.00 Hematuria presence: without hematuria Urinary tract infection type: acute cystitis
[2024-06-29 08:35] VITALS: BP 108/70; PULSE 75; TEMP 36.7; O2SAT 98; BMI 29.3
== END 2024-06-29 09:31 | disposition home or self-care (01) ==
PROVIDERS: PCP Internal Medicine; Visit Provider Registered Nurse
DX: Z13.9 Encounter for screening, unspecified (principal); N30.00 Acute cystitis without hematuria

== ENCOUNTER → 2024-06-29 08:03 | Outpatient (BNVA) | payer OTHER, SELFPAY | PROVIDERS: PCP Internal Medicine | DX: N30.00 Acute cystitis without hematuria (principal) | CPT/HCPCS: 81003 ==

== ENCOUNTER 2025-03-29 14:19 | Emergency (ER) | payer OTHER, SELFPAY ==
[2025-03-29 14:27] VITALS: BP 120/63; PULSE 71; RESP 19; TEMP 36.6; O2SAT 98; BMI 24.0
--- NOTE | 2025-03-29 14:29 | ED_ITS ---
HPI - General Adult General Chief complaint: General Medical Stated complaint: Needle stick @ work Time Seen by Provider: 03/29/25 16:21 Source: patient Mode of arrival: ambulatory Limitations: no limitations History of Present Illness ED Provider: DR. 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 Related Data Home Medications ?Medication ?Instructions ?Recorded ?Confirmed albuterol sulfate 90 mcg/actuation 2 puff inhalation Q 6H PRN 01/18/23 05/30/24 aerosol inhaler Previous Rx's ?Medication ?Instructions ?Recorded desogestrel-e.estradiol 0.15 1 tab PO DAILY 84 days #8 4 tabs 05/30/24 mg-0.02 mg(21)/e.estrad 0.01 mg(5) tablet nitrofurantoin 100 mg PO Q12H 5 days #10 ca ps 06/29/24 monohydrate/macrocrystals 100 mg capsule Allergies Allergy/AdvReac Type Severity Reaction Status Date / Time latex (LATEX) Allergy Mild RASH Verified 03/29/25 14:29 Review of Systems 2 Review of Systems: All other systems are reviewed and are negative Constitutional: Reports as per HPI and Reports no additional constitutional complaints Eyes: Reports as per HPI and Reports no additional eye complaints Reports system reviewed and no additional complaints, except as documented Cardiovascular: Reports as per HPI and Reports no additional cardiovascular complaints Respiratory: Reports as per HPI and Reports no additional respiratory complaints Gastrointestinal: Reports as per HPI and Reports no additional gastrointestinal complaints Genitourinary: Reports no additional female genitourinary complaints Musculoskeletal: Reports no additional musculoskeletal complaints Skin/Breast: Reports system reviewed and no additional complaints, except as docu Psychiatric: Reports no additional psychiatric complaints Endocrine: Reports no additional endocrine complaints Hematologic/Lymphatic: Reports no additional hematologic/lymphatic complaints Allergic/Immunologic: Reports no additional allergic/immunologic complaints Reports system reviewed and no additional complaints, except as documented and Reports Abnormal speech present [facility] Past Medical History Medical History TMJ (temporomandibular joint syndrome) Vitamin D deficiency Anxiety Thyroid nodule Acne comedone Acne Asthma History of asthma Surgical History History of lobectomy of thyroid H/O wrist surgery History of bunionectomy History of knee surgery Family History Family History Father Cancer of prostate Heart murmur FH: HTN (hypertension) Mother CVD (cardiovascular disease) History of heart attack Brother No problems noted. Sister No problems noted. 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 Blood pressure elevated. Heart rate normal. Respiratory rate normal. Temperature normal. Oxygen saturation normal. Appearance: Alert. Oriented X3. No acute distress. Head: Normal external exam. Normocephalic. Atraumatic. No Lacey signs noted. No raccoon eyes noted Eyes: PERRLA. EOMI. Conjunctiva and sclera normal. Eyelids normal. ENT: TM's Normal. Pharynx normal. Uvula midline. Moist mucous membranes. No trismus noted. No drooling noted. No muffled voice noted. Neck: Normal inspection. Neck supple. FROM. No adenopathy. Thyroid Normal. No meningeal signs. No neck mass noted. CVS: Normal heart rate and rhythm. Heart sound normal. No murmurs noted. Pulses normal throughout. Respiratory: No respiratory distress. Painless inspiration. Breath sounds normal. No wheezes/rales/rhonchi noted. Chest nontender. No accessory muscle usage noted or decreased air movement noted. Abdomen: Soft and nontender. Bowel sounds normal in all 4 quadrants. No distention noted. No organomegaly noted. No visible injury noted. Back: No CVA tenderness. Full range of motion noted. Skin: Skin warm and dry. Normal skin color. Normal skin turgor. No rashes/lesions/lacerations noted. Extremities: No lower extremity edema. Extremities exhibit normal range of motion. Extremities nontender. Neuro: Oriented X 3. Cranial nerve exam: II-XII are grossly intact No motor deficit. No sensory deficit. Reflexes normal. Course Course Course Narrative: 03/29/25 1429 JOEL Garces This is a Rapid Medical Examination (RME) performed by Marquise Seymour PA-C in triage. Full HPI, ROS, assessment and treatment plan per primary provider in the Main ED. 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 the needle was used and the individual is unknown to her, unknown HIV/ hepatitis status. The individual is supposedly being tested for these tomorrow. Patient does not personally have any history of HIV or hepatitis. would like work up/ treatment. PE/vitals: Small healing puncture wound to finger pad of left thumb. No active bleeding or discharge. Plan: labs, UA, HIV/hepatitis, further discussion about PEP. Reevaluation(s) Reevaluation #1: Post exposure after a needle puncture to the left thumb yesterday, patient agreed to be covered for HIV and will follow-up with work connection, Time: 16:35 Medical Decision Making Differential Diagnosis Differential Diagnoses: The differential diagnosis associated with the presentation includes (Electrolyte derangement, severe anemia, HIV testing, hepatitis testing.) Admission/Observation Consideration of admission/observation: Escalation of care including admission/observation considered Lab Data 03/29/25 15:43 03/29/25 15:43 Labs: Lab Results 03/29/25 Range/Units 15:43 WBC 9.6 (4.8-10.8) X10*3/uL RBC 4.66 (4.20-5.50) X10*6/uL Hgb 13.0 (12.0-16.0) g/dl Hct 39.9 (37.0-47.0) % MCV 85.6 (80.0-98.0) fL MCH 27.9 (27.0-33.0) pg MCHC 32.6 (31.0-35.0) g/dl RDW 14.1 (11.0-16.0) % Plt Count 232 (160-400) X10*3/uL MPV 9.8 (9.4-12.3) fL Immature Gran % (Auto) 0.4 (0.0-0.4) % Neut % (Auto) 56.6 (45-73) % Lymph % (Auto) 33.9 (20-40) % [place] % (Auto) 7.2 (2-11) % Eos % (Auto) 1.4 (0-4) % Baso % (Auto) 0.5 (0-2) % Lymph # (Auto) 3.3 (1.2-4.9) X10*3/uL [place] # (Auto) 0.7 (0.1-1.2) X10*3/uL Eos # (Auto) 0.1 (0.0-0.4) X10*3/uL Baso # (Auto) 0.1 (0.0-0.2) X10*3/uL Abs Immat Gran (auto) 0.04 H (0.00-0.03) X10*3/uL Absolute Neuts (auto) 5.4 (2.0-8.3) x10*3/uL Absolute Nucleated RBC 0.000 (0.0-0.012) X10*3/uL Nucleated RBC % (auto) 0.0 (0.0-0.2) /100WBC Sodium 142 (135-145) mmol/L Potassium 3.6 (3.3-5.1) mmol/L Chloride 106 (96-108) mmol/L Carbon Dioxide 27 (22-29) mmol/L Anion Gap 13 (12-20) BUN 13 (9-16) mg/dL Creatinine 0.94 (0.5-1.4) mg/dL Estim Creat Clear Calc 103.2 Estimated GFR > 60 Random Glucose 102 (60-115) mg/dL Calcium 9.0 (8.4-10.2) mg/dL Magnesium 1.9 (1.6-2.6) mg/dL Total Bilirubin 0.6 (0.0-1.0) mg/dL AST 12 (5-31) U/L ALT 8 (0-31) U/L Alkaline Phosphatase 32 L (39-117) U/L Total Protein 6.8 (6.5-8.0) g/dL Albumin 4.1 (3.5-5.0) g/dL Lipase 21 (8-78) U/L Discharge Plan Discharge Clinical Impression: Exposure to body fluid due to accidental needlestick injury Patient Disposition: Home, Self-Care Instructions: Needle Stick Injuries (ED) Additional Instructions: Call [facility] tomorrow and make an appointment. Prescriptions: No Action albuterol sulfate 90 mcg/actuation HFA aerosol inhaler 2 puff inhalation Q6H PRN desog-e.estradiol/e.estradiol 0.15-0.02 mgx21 /0.01 mg x 5 tablet 1 tab PO DAILY 84 Days Qty: 84 4RF nitrofurantoin monohyd/m-cryst 100 mg capsule 100 mg PO Q12H 5 Days Qty: 10 0RF Rx Instructions: must administer with a meal/food Referrals: [facility] [Outside] Print Language: Mauritian
[2025-03-29 15:49] LABS: MANUAL DIFF FLAG NO
[2025-03-29 16:03] LABS: Basophils Absolute Auto 0.1 X10*3/uL (0.0-0.2); Basophils Percent Auto 0.5 % (0-2); Eosinophils Absolute Auto 0.1 X10*3/uL (0.0-0.4); Eosinophils Percent Auto 1.4 % (0-4); Hematocrit 39.9 % (37.0-47.0); Imm Gran Abs Auto 0.04 X10*3/uL (0.00-0.03); Imm Gran Pct Auto 0.4 % (0.0-0.4); Lymphocytes Absolute Auto 3.3 X10*3/uL (1.2-4.9); Lymphocytes Percent Auto 33.9 % (20-40); Mean Corpuscular HGB Conc 32.6 g/dl (31.0-35.0); Mean Corpuscular Hemoglobin 27.9 pg (27.0-33.0); Mean Corpuscular Volume 85.6 fL (80.0-98.0); Mean Platelet Volume 9.8 fL (9.4-12.3); Monocytes Absolute Auto 0.7 X10*3/uL (0.1-1.2); Monocytes Percent Auto 7.2 % (2-11); Neutrophils Absolute Auto 5.4 x10*3/uL (2.0-8.3); Neutrophils Percent Auto 56.6 % (45-73); Platelet Count 232 X10*3/uL (160-400); Red Blood Count 4.66 X10*6/uL (4.20-5.50); Red Cell Distribution Width 14.1 % (11.0-16.0); White Blood Count 9.6 X10*3/uL (4.8-10.8)
[2025-03-29 16:04] LABS: Alanine Aminotransferase 8 U/L (0-31); Albumin Level 4.1 g/dL (3.5-5.0); Alkaline Phosphatase 32 U/L (39-117); Anion Gap 13 (12-20); Aspartate Amino Transferase 12 U/L (5-31); Bilirubin Total 0.6 mg/dL (0.0-1.0); Blood Urea Nitrogen 13 mg/dL (9-16); Carbon Dioxide 27 mmol/L (22-29); Chloride 106 mmol/L (96-108); Creatinine Clr Calc Pharmacy 103.2; Estimated Glomerular Filt Rate > 60; Glucose Random 102 mg/dL (60-115); Lipase 21 U/L (8-78); Magnesium 1.9 mg/dL (1.6-2.6); Potassium 3.6 mmol/L (3.3-5.1); Sodium 142 mmol/L (135-145); Total Protein 6.8 g/dL (6.5-8.0)
--- OUTSIDE RECORDS SUMMARY | 2025-03-29 16:30 | XMS_ITS | Clinical Summary ---
Author Organization [facility] Address [address] [place] [id number] Phone Care Team Providers Care Entertainment Manager Name Role Phone Unavailable Primary Care Provider Unavailabl e Immunizations Immunization Administration Dates Next Due DTP 12/03/1995, 4,01/09/1994,11/04 DTaP 5 10/10/1998 HPV, Quadrivalent 01/24/2008,09/21/2007,07/14/20 07 Hep A, Adult 04/02/2014 Hep B, ped/adol 07/16/1994,1993,1993 Hib (PRP-T) 12/31/1994, 4,01/09/1994,11/04 IPV 10/10/1998, 4,01/09/1994,11/04 Influenza Split 09/11/2011,08/12/2010 Influenza, injectable, trivalent 06/26/2009 MMR 10/10/1998,12/31/1994 Meningococcal Conj (Menactra) MCV4P 06/10/2012,1 Td (adult) (MBL), 2 Lf tetan us toxoid, PF, adsorbed 05/11/2005 Tdap 07/14/2007 Family History Relation Name Status Comments Brother Alive Brother: Asthma , ADD Father Alive Father: Alive a nd well Maternal Grandfather Materna l grandfather: , D M Type II, Congestive heart failure Maternal Grandmother Materna l grandmother: Hypertension, , Stroke, Renal disease Mother Mother: IBS, Hy pothyroidism Paternal Grandfather Paterna l grandfather: Stroke, Hypertension, Sister Alive Sister: Alive a nd well Social History Tobacco Use Types Packs/Day Years Used Date Smoking Tobacco: Never Comments:Never smoker Comments Unknown Sex and Gender Information Value Date Recorded Sex Assigned at Not on file Legal Sex Female 4:46 PM EDT Gender Identity Not on file Sexual Orientation Not on file Last Filed Vital Signs Vital Sign Reading Time Taken Comments Blood Pressure 117/62 04/02/2014 12:00 AM EDT Pulse 68 04/02/2014 12:00 AM EDT Temperature 36 C (96.8 F) 04/02/2014 12:00 AM EDT Respiratory Rate - - Oxygen Saturation - - Inhaled Oxygen Concentration - - Weight 81.3 kg (179 lb 3.2 oz) 04/02/2014 12:00 AM EDT Height 179 cm (5' 10.47 ) 04/02/2014 12:00 AM ED T Body Mass Index 25.37 04/02/2014 12:00 AM EDT Plan of Treatment Health Maintenance Due Date Last Done Comments Varicella Vaccines (1 of 2 - 13+ 2-dose series) 2006 DTaP,Tdap,and Td Vaccines (7 - Td or Tdap) 07/14/2017 07/14/2007, 05/11/2005, 10/10/1998, Additional history exists Influenza Vaccines (#1) 2024 09/11/20, 08/12/2010, 06/26/2009 COVID-19 Vaccine (2023- season) 2024 Hepatitis B Vaccines Completed 07/16/1994, 1993, 1993 HIB Vaccines Completed 12/31/1994, 03/11, 01/09/1994, Additional history exists IPV Vaccines Completed 10/10/1998, 03/11, 01/09/1994, Additional history exists MMR Vaccines Completed 10/10/1998, 12/31/1994 HPV Vaccines Completed 01/24/2008, 09/10, 07/14/2007 Meningococcal Vaccine Completed 06/10/2012, 007 Hepatitis A Vaccines Aged Out 04/02/2014 No long er eligible based on patient's age to complete this topic Men B Vaccine Aged Out No longer elig ible based on patient's age to complete this topic Pneumococcal Vaccine Aged Out No long er eligible based on patient's age to complete this topic Procedures * Due to [place] [employer] law, this organization might not be sharing sensitive test results. Procedure Name Priority Date/Time Associated Diagnosis Comments CHLAMYDIA AND GONORRHEA, AMPLIFIED Routine 04/04/2014 2:21 PM EDT from Last 3 Months or Most Recently Relevant to Health Maintenance Results * Due to [facility] law, this organization might not be sharing sensitive test results. * Chlamydia and Gonorrhoea, Amplified (04/04/2014 2:21 PM EDT) [facility] URINE GC AMP PROBE NEGATIVE [facility] Comment: NO NEISSERIA GONORRHOEAE RNA DETECTED IN THIS PATIENT'S SAMPLE. (REFERENCE RANGE/NORMAL VALUE: NOT DETECTED) NOTE: This test uses scientologist-mediated amplification method to detect rRNA from C.Trachomatis and N.Gonorrhoeae. A negative result does not preclude infection. In the case of a negative urine result, testing of an endocervical(female) or urethral(male) specimen is recommended if there is high clinical suspicion of infection. The performance characteristics of this test have not been evaluated in children. The Aptima Combo2 assay is not intended for the evaluation of suspected sexual abuse or for other medico-legal indications. The ordering provider should assess if the patient had consensual sex without risk of sexual abuse. Consult the [facility] if needed. Contact phone number . Therapeutic failure or success cannot be determined with the Aptima Combo2 assay since nucleic acid may persist following appropriate antimicrobial therapy. The Centers for Disease Control and Prevention (CDC) recommends confirmatory retesting using culture or a different nucleic acid amplification test when positive results occur, if indicated. Testing performed or reported by [facility], a Service of [facility], [address] [place] [id number] Rayn Tyler, Gas Singer URINE CHLAMYDIA AMP PROBE POSITIVE [facility] Comment: CHLAMYDIA TRACHOMATIS RNA DETECTED IN THIS PATIENT'S SAMPLE. (REFERENCE RANGE/NORMAL VALUE: NOT DETECTED) . PURSUANT TO [id number], THESE CLINICAL LABORATORY RESULTS HAVE BEEN REPORTED TO THE [place] DEPARTMENT OF PUBLIC HEALTH. PLEASE BE AWARE THAT HEALTHCARE PROVIDERS HAVE ADDITIONAL PUBLIC HEALTH REPORTING REQUIREMENTS. 04/04/2014 2:21 PM EDT [facility] - 04/04/2014 2:21 PM EDT URINE CHLAMYDIA GC AMP PROBE us Jaylene Trejo MD LAB MICROBIOLOGY - GENERAL ORDER IRENE Final Result [facility] [address] [place] [address], [place] from Last 3 Months or Most Recently Relevant to Health Maintenance
[2025-03-29] MEDS: Post Exposure Medication Kit 1 KIT PO (16:51)
[2025-03-29 16:52] VITALS: BP 120/63; PULSE 71; RESP 19; TEMP 36.6; O2SAT 98
[2025-03-30 08:21] LABS: HBc Num1 0.13 S/CO (0.00-0.79); HBsAGNum1 0.52 S/CO (0.00-0.99); HIV AB/AG Nonreactive (Nonreactive); HIV Num 1 0.06 S/CO (0.00-0.99); Hepatitis A Antibody IgM 0.24 Index (0-0.79); Hepatitis B Core Antibody Nonreactive (Nonreactive); Hepatitis B Surface Antigen Negative (Negative); ~HepC Num1 0.14 S/CO (0.00-0.79); ~Hepatitis A Antibody IgM Nonreactive (Nonreactive); ~Hepatitis B Surface Antibody REACTIVE (Nonreactive); ~Hepatitis C Antibody Nonreactive (Nonreactive)
== END 2025-03-29 16:52 | disposition home or self-care (01) ==
PROVIDERS: Physician Assistant Medical; Emergency Provider Emergency Medicine; PCP Internal Medicine
DX: S61.032A Puncture wound without foreign body of left thumb without damage to nail, initial encounter (principal); M79.642 Pain in left hand; X58.XXXA Exposure to other specified factors, initial encounter; Y93.9 Activity, unspecified; Y92.9 Unspecified place or not applicable; Y99.0 Civilian activity done for income or pay; Z79.899 Other long term (current) drug therapy; Z20.6 Contact with and (suspected) exposure to human immunodeficiency virus [HIV]; Z20.828 Contact with and (suspected) exposure to other viral communicable diseases
CPT/HCPCS: 36415; 80053; 83690; 83735; 85025; 86704; 86706; 86709; 86803; 87340; 87389; 99283

== ENCOUNTER 2025-06-21 14:12 | Outpatient (REF) | payer OTHER, SELFPAY ==
[2025-06-21 20:40] LABS: Bacterial Vaginosis PCR NEGATIVE (Negative); Candida Group PCR DETECTED (Not Detect); Candida glab krusei PCR NOT DETECTED (Not Detect); Trichomonas vaginalis PCR NOT DETECTED (Not Detect)
[2025-06-21 22:20] LABS: CT PCR NOT DETECTED (Not Detect.); NG PCR NOT DETECTED (Not Detect.)
== END 2025-06-21 14:13 | disposition home or self-care (01) ==
LOC: HO.LAB 14:12
PROVIDERS: PCP Internal Medicine; Visit Provider Advanced Practice Midwife
DX: Z01.419 Encounter for gynecological examination (general) (routine) without abnormal findings (principal); Z20.2 Contact with and (suspected) exposure to infections with a predominantly sexual mode of transmission
CPT/HCPCS: 81515; 87491; 87591

== ENCOUNTER 2025-06-21 14:12 | Outpatient (AMB) | payer OTHER, SELFPAY ==
--- NOTE | 2025-06-21 14:14 | MHC.OFFVIS ---
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 [employer] Admissions Representative Required: No Information Interpreted: non-clinical & clinical Detail Manager: Detail Manager Present (Keely) Accompanied by: Self / Same As Patient Allergies latex (LATEX) Allergy (Mild, Verified 06/21/25 14:18) RASH Medication List - Last Reconciled 06/21/25 by Denisse Jimenez LPN albuterol sulfate 90 mcg/actuation 2 puffs inhalation Q6H PRN desog-e.estradiol/e.estradiol 0.15-0.02 mgx21 /0.01 mg x 5 1 tab PO DAILY 84 days Is last menstrual period known: Yes Last menstrual period: 06/10/25 Do you need a note to return to daycare/school/sports/work: No HPI Comments Details: Patient is a premenopausal woman presenting for annual examination. Peoplesoft Analyst concerns: none. OCP user. She denies any contraindications to control such as: migraines with aura, history of DVT or pulmonary emboli, high blood pressure, liver disease, thrombolic disorders, Lupus, +PUJA, breast cancer, or smoking. Currently is sexually active. She denies vaginal itching or irritation. STI screening offered; she accepts, declines blood work. She tries to eat healthy and stays active with exercise. Denies family history of breast, ovarian or colon cancer. Last pap smear 2022, negative. PFSH Medical History TMJ (temporomandibular joint syndrome) Vitamin D deficiency Anxiety Thyroid nodule Acne comedone Acne Asthma History of asthma Surgical History History of lobectomy of thyroid H/O wrist surgery History of bunionectomy History of knee surgery Family History Father Cancer of prostate Heart murmur FH: HTN (hypertension) Mother CVD (cardiovascular disease) History of heart attack Brother No problems noted. Sister No problems noted. 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 occupational exposures/hazards: No Cognitive needs: No Hearing needs: No Vision needs: No Female Reproductive History Menstrual Age of Menarche: 14 Date of last menstrual period: 06/10/25 control method: pills Total pregnancies: 0 Number of Living Children: 0 Date of last pap smear: 05/30/24 (neg pap and hpv) Review of Systems Const All systems reviewed & are unremarkable except as noted in HPI and below Reports as per HPI Eyes Reports no additional complaints ENT Reports no additional complaints Card Reports no additional complaints Resp Reports no additional complaints GI Reports as per HPI and Reports no additional complaints Reports as per HPI Musc Reports no additional complaints Skin/Breast Reports as per HPI Neuro Reports no additional complaints Psych Reports no additional complaints Endo Reports no additional complaints Mohit/Lymph Reports no additional complaints Aller/Immun Reports no additional complaints Physical Exam Vital Signs: Last Vital Signs BP 106/72 06/21/25 14:24 BMI result Body Mass Index 25.5 Const General: cooperative, healthy appearing, no acute distress, well developed and alert Orientation/consciousness: patient oriented x3 HEENT Head: Yes normal to inspection Eyes General: appearance normal, both eyes and all related structures Neck Neck: Yes normal visual inspection Thyroid: Thyroid normal Chest Chest palpation & inspection: normal inspection of the chest and other (no puckering, dimpling, peau de orange, retraction, discharge, masses) Breast/axilla inspection: normal inspection of the breasts Breast/axilla palpation: normal palpation of the breasts Resp Effort & Inspection: normal respiratory effort GI Inspection: Yes normal to inspection Palpation (GI): Soft to palpation Rectal Exam - Female: deferred General: Yes bladder normal to palpation External Female Exam: normal external appearance and normal appearance of the urethra Speculum Exam - Vagina: normal appearance of the vagina, normal palpation and normal vaginal discharge Speculum Exam - Cervix: normal appearance of the cervix and normal palpation Bimanual exam- vagina & uterus: normal bimanual exam, normal palpation, uterine size normal, bladder normal to palpation, normal palpation and non-tender Bimanual Exam- Adnexa, other: no masses Skin General skin exam: no rashes or lesions noted Rashes: no rashes Neuro General: patient oriented x3 Cognition (Neuro): normal cognition Extrem General: Yes normal to inspection Psych Attitude: cooperative Thought process: Normal thought process present Assessment & Plan Assessment & Plan (1) Encounter for annual routine gynecological examination: Code(s): Z01.419 - Encounter for gynecological examination (general) (routine) without abnormal findings Category: Medical Plan Discussed: Current recommendations for pap smears per ASCCP guidelines. BV panel and GC chlamydia obtained. Breast awareness and periodic breast exams. Maintain a healthy lifestyle including a well balanced diet and routine exercise. control hormone use warnings: go to ER if and loss of vision, blindness, severe headache, chest pain or difficulty breathing, severe abdominal pain, or any pain or swelling in an extremity. Patient verbalizes understanding and agrees to the plan of care. She was given opportunity to ask questions and all questions were answered to the best of my ability. RTO in one year for annual obstetrics and gynecology professor examination. This note is constructed using voice recognition software. While every effort has been made to ensure accuracy, electronic science teacher errors may have been included. Orders: Orders Bacterial Vaginosis Panel Today Z20.2 - Contact with and (suspected) exposure to infections with a predominantly sexual mode of transmission HPV High risk Today Z01.419 - Encounter for gynecological examination (general) (routine) without abnormal findings Pap Smear Today Z01.419 - Encounter for gynecological examination (general) (routine) without abnormal findings CT NG by PCR Vag/Cerv Today Z20.2 - Contact with and (suspected) exposure to infections with a predominantly sexual mode of transmission Coding Level of Care Code Est Pt Prev Care 18-39y(07212) Diagnoses Encounter for annual routine gynecological examination Z01.419
[2025-06-21 14:24] VITALS: BP 106/72; BMI 25.5
--- OUTSIDE RECORDS SUMMARY | 2025-06-21 17:59 | XMS_ITS | Patient Health Record ---
Author Organization [facility] Address [address] [place] [address] Care Team Providers Care Rubber Goods Tester Water Name Role Phone Lorelei Hernandez Unavailable [phone] Reason For Referral No Information Problems No Known Problems Plan Of Treatment No Information Insurance Providers Payer Name Payer Address Payer Phone Subscriber Number Group Number Insured Name Patient Relationship to Insured Coverage Start Date Coverage End Date [employer] [address] [place] [address] [phone] [id number] Surya Devi Child - Insured has Financial Responsibility Medical (General) History Medical History History ICD Code asthma Chicken pox Surgical History Surgery Date(Month/Year) tendon repair
--- OUTSIDE RECORDS SUMMARY | 2025-06-21 17:59 | XMS_ITS | Clinical Summary ---
Author Organization [facility] Address [address] [place] [id number] Phone Care Team Providers Care Manuscripts Curator Name Role Phone Unavailable Primary Care Provider [...] 10/10/1998, Additional history exists Influenza Vaccines (#1) 2025 09/11/20, 08/12/2010, 06/26/2009 COVID-19 Vaccine ( season) 2025 Hepatitis B Vaccines Completed 07/16/1994, 1993, 1993 [...] complete this topic Procedures * Due to [place] [employer] law, this organization might not be sharing sensitive test results. Procedure Name Priority Date/Time Associated Diagnosis Comments CHLAMYDIA AND GONORRHEA, AMPLIFIED Routine 04/04/2014 2:21 PM EDT from Last 3 Months or Most Recently Relevant to Health Maintenance Results * Due to [facility] law, this organization might not be sharing sensitive test results. * Chlamydia and Gonorrhoea, Amplified (04/04/2014 2:21 PM EDT) [facility] URINE GC AMP PROBE NEGATIVE [facility] Comment: NO NEISSERIA GONORRHOEAE RNA DETECTED IN THIS PATIENT'S SAMPLE. (REFERENCE RANGE/NORMAL VALUE: NOT DETECTED) NOTE: This test uses brand coordinator-mediated amplification method to detect rRNA from C.Trachomatis [...] risk of sexual abuse. Consult the [facility] if needed. Contact phone number . Therapeutic failure or success cannot be determined with the Aptima Combo2 assay since nucleic acid may persist following appropriate antimicrobial therapy. The Centers for Disease Control and Prevention (CDC) recommends confirmatory retesting using culture or a different nucleic acid amplification test when positive results occur, if indicated. Testing performed or reported by [facility], a Service of [facility], [address] [place] [id number] Ryan Tyler, Environmental Sustainability Manager URINE CHLAMYDIA AMP PROBE POSITIVE [facility] Comment: CHLAMYDIA TRACHOMATIS RNA DETECTED IN THIS PATIENT'S SAMPLE. (REFERENCE RANGE/NORMAL VALUE: NOT DETECTED) . PURSUANT TO [id number], THESE CLINICAL LABORATORY RESULTS HAVE BEEN REPORTED TO THE [place] DEPARTMENT OF PUBLIC HEALTH. PLEASE BE AWARE THAT HEALTHCARE PROVIDERS HAVE ADDITIONAL PUBLIC HEALTH REPORTING REQUIREMENTS. 04/04/2014 2:21 PM EDT [facility] - 04/04/2014 2:21 PM EDT URINE CHLAMYDIA GC AMP PROBE us Jaylene Trejo MD LAB MICROBIOLOGY - GENERAL ORDER IRENE Final Result [facility] [address] [address] [place] [address], [place] from Last 3 Months or Most Recently Relevant to Health Maintenance
--- OUTSIDE RECORDS SUMMARY | 2025-06-21 17:59 | XMS_ITS | Encounter Summary ---
Author Organization [facility] Address [address] [place] [address] Phone Care Team Providers Care Transaction Coordinator Name Role Phone Jaylene Trejo MD Primary Care Provider [phone] Encounter Details Date Type Department Care Team (Late st Contact Info) Description 05/27/2017 Conversion Encounter [facility] [address] [place] [address] Social History Tobacco Use Types Packs/Day Years Used Date Smoking Tobacco: Never Comments:Never smoker Comments Unknown Sex and Gender Information Value Date Recorded Sex Assigned at Not on file Legal Sex Female 4:46 PM EDT Gender Identity Not on file Sexual Orientation Not on file documented as of this encounter Plan of Treatment Not on file documented as of this encounter Visit Diagnoses Not on filedocumented in this encounter Care Teams Transaction Coordinator Relationship Specialty Start Date End Date Jaylene Trejo MD [address] [place] [address] PCP - General 05/21/17 01/19/23 documented as of this encounter
== END 2025-06-21 14:52 | disposition home or self-care (01) ==
LOC: HO.HWS 14:12
PROVIDERS: PCP Internal Medicine; Visit Provider Advanced Practice Midwife
DX: Z01.419 Encounter for gynecological examination (general) (routine) without abnormal findings (principal)
CPT/HCPCS: 99395; 99459

== ENCOUNTER 2025-06-21 14:47 | Outpatient (REF) | payer OTHER, SELFPAY | END 2025-06-21 14:48 | disposition home or self-care (01) | LOC: HO.LNP 14:47 | PROVIDERS: Visit Provider Advanced Practice Midwife | DX: Z13.89 Encounter for screening for other disorder (principal) | CPT/HCPCS: 87626; 88175 ==